=== PATIENT | male | born 1945 | race Caucasian/White ===

== ENCOUNTER 2019-03-20 12:55 | Emergency (ER) | payer MEDICARE, OTHER, SELFPAY ==
[2019-03-20] VITALS (47 sets, daily range): BP systolic 108–246; BP diastolic 57–118; PULSE 60–123; RESP 8–25; TEMP 36.8–36.9; O2SAT 92–100
--- NOTE | 2019-03-20 13:10 | DI.CT_ITS ---
EXAM: CT HEAD - STROKE PROTOCOL CLINICAL HISTORY: Altered mentation after a fall/rule out subdural TECHNIQUE: The exam was performed according to the usual protocol without contrast. COMPARISON: No exams were available for comparison FINDINGS: There is a 2.8 cm., heterogeneous mass in the posterior aspect of the left parietal lobe. There is m arked surrounding edema present. There is effacement of the adjacent sulci and the left lateral vent ricle. No midline shift is present. No intracranial hemorrhage is seen. The basilar cisterns are p atent. There is opacification of the ethmoid air cells. There is a small fluid level in the right m axillary sinus. The calvarium is intact. Mastoid air cells are well pneumatized. IMPRESSION: 1. 2.8 cm heterogeneous mass in the posterior aspect of the left parietal lobe. Post contrast CT sca n or MRI is recommended for further evaluation. 2. Opacities in the ethmoid air cells and right maxillary sinus suspicious for sinusitis or possibly hemorrhage.
--- NOTE | 2019-03-20 13:11 | ED.GENADUL_ITS ---
Discharge Plan Discharge Details Chief Complaint: CVA/TIA Primary Care Provider: Unknown,Unknown ED Provider: Geovanni Ernst Home Meds and New Rx's Prescriptions: No Action aspirin [Aspirin Low-Strength] 81 MG tablet,chewable 81 mg PO DAILY RF: 0 protein 454 GM powder 454 gm PO DAILY RF: 0 hydrochlorothiazide 25 MG tablet 25 mg PO DAILY Qty: 90 RF: 3 metoprolol tartrate 25 MG tablet 12.5 mg PO DAILY Qty: 45 RF: 3 amlodipine-benazepril 1 EACH capsule 1 tab-cap PO DAILY Qty: 90 RF: 1 Medical Decision Making 74-year-old gentleman with past medical history of tobacco abuse and hypertension. He has been noncompliant with any medications except for having taken one aspirin yesterday. Presented via EMS with acute on chronic altered mentation and right upper extremity weakness. Expressive a aphasia and unable to respond to commands on arrival. Also right upper extremity motor weakness. Otherwise nonfocal exam. EKG nondiagnostic. Labs nondiagnostic. Head CT diagnostic for a mass lesion with associated vasogenic edema. During course of evaluation, had a full witnessed tonic-clonic seizure. Treated with 2 mg of IV lorazepam, 1 g of IV Keppra, and 10 mg of IV dexamethasone. Discussed case with accepting neurosurgery physician at [facility]. Patient transferred to [facility] for higher level of assessment and management. Patient remained stable at time of transport with normal vital signs, normal respiratory function, and no further seizure-like activity. Medical Records Medical records reviewed: Yes I reviewed the patient's medical records. Imaging Data Radiologic Study: Attestation: I personally reviewed and interpreted this imaging study as follows: Imaging: CT Scan My impression: 3 to 4 cm mass lesion in the posterior aspect of the left frontoparietal lobe. Surrounding vasogenic edema. Images reviewed independently interpreted by myself. Radiologist's impression: Same. ECG Data Attestation: I personally reviewed and interpreted this ECG (s) as follows: (Atrial tachycardia, 100 bpm, no acute ST changes) HPI 74-year-old gentleman with a past medical history which includes hypertension and was not on oral anticoagulants transferred here via EMS for evaluation of acute on chronic difficulty with word finding, confusion, and right-sided weakness. History from the patient is limited because of difficulty with speech. According to EMS and his , Mr. Gonzalez fell approximately 3 weeks ago. He denied having had a significant injury to his . However, over the past 2 weeks, he has had increased difficulty with word finding and low-grade right-sided weakness. This morning, he has been significantly worsened in terms of inability to find words/converse and move his right upper extremity. On arrival, he is mildly hypertensive and appears no distress. However, he is unable to respond to questioning or follow commands. General Date/Time Provider Initiated Documentation: 03/20/19 13:05 . Related Data Home Medications Medication Instructions Recorded Confirmed aspirin [Aspirin Low-Strength] 81 mg PO DAILY tab 08/30/12 protein 454 gm PO DAILY 01/02/15 hydrochlorothiazide 25 mg PO DAILY #90 tab 02/12/16 metoprolol tartrate 12.5 mg PO DAILY #45 tab-cap 02/12/16 amlodipine-benazepril 1 tab-cap PO DAILY #90 tab-cap 07/15/16 Allergies Allergy/AdvReac Type Severity Reaction Status Date / Time codeine AdvReac unknown Unverified 03/20/19 13:12 estazolam AdvReac sleepwalkin Unverified 03/20/19 13:12 g sertraline AdvReac anxious, Unverified 03/20/19 13:12 dizzy General Stated Complaint: CVA/TIA NANNETTE: 2 Review of Systems Unobtainable due to mental status (Occasionally answers yes or no but otherwise unable to answer questions) [facility] Surgical History Tonsillectomy and adenoidectomy Family History Mother Essential hypertension Personal history of malignant neoplasm breast Father Diabetes Essential hypertension Sister Essential hypertension Sister No problems noted. Brother Substance abuse Grandfather Heart disease Stroke Grandmother Heart disease heart failure Social History Smoking/Tobacco Use Status: Current every day Alcohol Intake: former Drug use: Occasionally Substance use type: marijuana Additional Social history: Patient unable to articulate to answer questions. Exam Narrative Exam Narrative: Nursing note and vital signs have been reviewed and noted. GENERAL: alert, no acute distress, well -hydrated, well-nourished HEENT: atraumatic/normocephalic, PERRLA, EOMI, conjunctiva clear, external ears/canals normal, nasal mucosa normal NECK: supple, full range of motion, no mass, normal lymphadenopathy, no thyromegaly CARDIOVASCULAR: RRR, no murmurs, nl pulses, no edema PULMONARY: nl effort, no audible wheezing or stridor, nl breath sounds with no focal deficit. no chest wall tenderness ABDOMEN: soft, non-tender, non-distended, no mass, no organomegaly EXTREMITY: normal muscle tone, all joints with FROM, no deformity or tenderness SKIN: no exanthem appreciated NEURO: Unable to assess motor strength as patient does not respond to commands. Appears to be moving right upper extremity less than left. Expressive aphasia. PSYCH: Awake and alert interactive with staff and , Course Vital Signs Vital signs: Vital Signs Temperature 98.2 F 03/20/19 12:57 Pulse 100 H 03/20/19 12:57 Respiratory Rate 16 03/20/19 12:57 Blood Pressure 201/118 H 03/20/19 12:57 Pulse Oximetry 100 03/20/19 12:57 Temperature 98.2 F 03/20/19 12:57 Temperature Source Skin 03/20/19 12:57 Pulse 100 H 03/20/19 12:57 Respiratory Rate 16 03/20/19 12:57 Blood Pressure 201/118 H 03/20/19 12:57 Blood Pressure Position Sitting 03/20/19 12:57 Pulse Oximetry 100 03/20/19 12:57 Oxygen Delivery Method Room Air 03/20/19 12:57 Oxygen Flow Rate 0 03/20/19 12:57 Critical Care Time Critical Care Time Critical Care Time: Yes Total Critical Care Time: 60
[2019-03-20 13:28] LABS: Abs Immature Grans 0.02 k/cumm (0.0-0.09); Absolute Basophil Count 0.01 k/cumm (0.0-0.2); Absolute Lymphocyte Count 1.73 k/cumm (1.2-3.4); Absolute Monocyte Count 1.26 k/cumm (0.11-0.7); Basophils % 0.1; Eosinophils % 0.9; HCT 44.3 % (40.0-50.0); Immature Grans % 0.2; Lymphocytes % 15.5; Mean Corp. HGB Concentration 33.9 g/dL (32.0-36.0); Mean Corpuscular Hemoglobin 28.1 pg (27.0-33.0); Mean Corpuscular Volume 83.1 fL (80-95); Mean Platelet Volume 11.8 fL (8.0-11.0); Monocytes % 11.3; Platelet Count 224 x1000/uL (130-400); RBC 5.33 m/cumm (4.50-6.00); RBC Distribution Width 13.5 % (11.8-14.1); White Blood Cell Count 11.18 k/cumm (4.4-10.8)
[2019-03-20 13:29] LABS: Absolute Neutrophil Count 8.05 k/cumm (1.2-6.7)
[2019-03-20] MEDS: LORazepam 2 MG/ML VIAL ×2 (13:37→15:44)
[2019-03-20 13:39] LABS: ALT 30 U/L (16-63); AST 20 U/L (15-37); Alkaline Phosphatase 74 U/L (46-116); Anion Gap 14.5 mmol/L (3-11); BUN 11 mg/dL (7-18); Bilirubin, Total 0.5 mg/dL (0.2-1.0); CO2 20.5 mmol/L (21.0-32.0); CREATININE 0.99 mg/dL (0.70-1.30); Calcium 9.7 mg/dL (8.5-10.1); Chloride 103 mmol/L (98-107); Glucose 118 mg/dL (70-100); Potassium 3.6 mmol/L (3.5-5.1); Sodium 138 mmol/L (136-145); Total Protein 9.3 g/dL (6.4-8.2)
--- NOTE | 2019-03-20 13:42 | DI.VRAD_ITS ---
Addendum created by Yamileth Jones MD on 03/20/2019 2:23:55 PM EST THIS REPORT CONTAINS FINDINGS THAT MAY BE CRITICAL TO PATIENT CARE. The findings were verbally communicated via telephone conference with NANDINI BAIELY at 2:23 PM EST on 03/20/2019. The findings were acknowledged and understood. Initial report created on 03/20/2019 1:41:33 PM EST PROCEDURE INFORMATION: Exam: CT Head Without Contrast Exam date and time: 03/20/2019 1:11 PM Clinical history: 74 years old, male; Altered mental status/memory loss; Patient HX: AMS after fall TECHNIQUE: Imaging protocol: Computed tomography of the head without contrast. Other technique: STROKE PROTOCOL was implemented. COMPARISON: No relevant prior studies available. FINDINGS: Brain: Subtle 2.8 cm heterogeneous mass in the posterior aspect of the left frontoparietal lobe with surrounding edema. Ventricles: Effacement of the left occipital horn Bones/joints: Unremarkable. No acute fracture. Sinuses: Opacities in the ethmoid sinuses and right maxillary sinus and sphenoid sinuses may represent hemorrhage or sinusitis. Mastoid air cells: Visualized mastoid air cells are well aerated. Soft tissues: Unremarkable. IMPRESSION: 1. Subtle 2.8 cm heterogeneous mass in the posterior aspect of the left frontoparietal lobe with surrounding edema. 2. Opacities in the ethmoid sinuses and right maxillary sinus and sphenoid sinuses may represent hemorrhage or sinusitis. ASSESSMENT: ASPECTS ([place] Stroke Program Early CT Score) is 10 Dictated and Authenticated by: Yamileth Jones MD. Ordering:MIGUEL ANGEL Galarza MD
[2019-03-20] MEDS: Dexamethasone 10 MG/ML VIAL (13:44)
[2019-03-20] MEDS: levETIRAcetam 500 MG/5 ML VIAL (13:45)
[2019-03-20] MEDS: Normal Saline 100 ML 400 ML (13:47)
[2019-03-20] MEDS: Lactated Ringers 1,000 ML 100 ML IV (14:43)
== END 2019-03-20 16:02 ==
LOC: ER 13:39
PROVIDERS: Emergency Provider Emergency Medicine
DX: I63.9 Cerebral infarction, unspecified (principal); I10 Essential (primary) hypertension
CPT/HCPCS: 36415; 36416; 80053; 82962; 93005; 96361; 96374; 96375; 99291; 70450; 85025; 93010; J1100; J1953; J2060

== ENCOUNTER 2019-04-01 09:40 | Emergency (ER) | payer MEDICARE, OTHER, SELFPAY ==
[2019-04-01] VITALS (23 sets, daily range): BP systolic 137–165; BP diastolic 73–84; PULSE 49–59; RESP 10–24; TEMP 36.4; O2SAT 97–100
--- NOTE | 2019-04-01 10:06 | W.ED.GENAD ---
Discharge Plan Disposition Patient Disposition: HOME Condition: Stable Discharge Details Chief Complaint: Dizzy/Sync Clinical Impression: Syncope Primary Care Provider: Arline Chauhan ED Provider: Vlad Ortiz Discharge Instructions Instructions: Syncope (ED) Additional Instructions: Your cat scan of your head and chest did not show any bleeding or blood clots or pneumonia. You do have small compression fractures The neurosurgery team at [facility] did not feel adjusting your seizure meds was warranted at this time follow up as scheduled with your primary care provider next week and if you feel more ill or have difficulty breathing return to the emergency department drink fluids to stay hydrated Medical Decision Making 74 yo male who has metastatic lung cancer diagnosed after a seizure this month and had craniotomy for mass at [facility], hasn't started chemotherapy or other therapy as of yet, comes in with several episodes of loc over the past 2 days while standing. Denies chest pain, sob, abd pain, headaches, fevers, cough and he currently has no complaints and states I really want a donut. He has soft nontender abdomen, cN II-XII intact, no focal motor or sensation deficits. EKG sinus rhythm, hd stable. Will obtain troponin, ct head to eval for possible hemorrhage and obtain CTA to eval for PE given his current cancer and continue to monitor. labs show mild leukocytosis not changed from when he was at [facility] [place] and can be from his cancer. CTs show no acute findings other than acute/subacute t10-12 compression fxs and he states he only has mild back aches, no midline pain or stepoffs on exam. I discussed the case with neurosurgery at [facility] [place] Dr. Patel and did not recommend any changes in seizure meds. Patient has been stable here. I recommended observation admission for syncope but pt declined and has capacity to make his own decisions. He likely was experiencing orthostasis so advised to drink fluids. He has f/u next week with pcp and return precautions given Differential Diagnosis Differential Diagnosis: vasovagal, orthostasis, PE, sdh Medical Records Medical records reviewed: Yes I reviewed the patient's medical records. Imaging Data Radiologic Study: Attestation: I personally reviewed and interpreted this imaging study as follows: Imaging: CT Scan Radiologist's impression: IMPRESSION: 1. No evidence of a pulmonary embolus, thoracic aortic dissection or aneurysm. 2. 4 centimeter right upper lobe spiculated mass consistent with patient's known carcinoma. 3. Fractures involving the T10, T11 and T12 vertebral bodies as described above. The findings appear acute/subacute. 4. The findings were discussed with the emergency department on the date of the examination Radiologic Study #2: Attestation: I personally reviewed and interpreted this imaging study as follows: Imaging: CT Scan Radiologist's impression: IMPRESSION: 1. No acute intracranial process. 2. Postsurgical changes of a left parietal craniotomy and resection of the left parietal mass. Postsurgical changes are seen in the left parietal lobe. 3. The findings were discussed with the emergency department on the date of the examination. Lab Data Lab results reviewed: Yes I reviewed the patient's lab results. ECG Data Attestation: I personally reviewed and interpreted this ECG (s) as follows: Prior ECG tracings: not available for review Interpretation: sinus bradycardia, rate of 51, pr 144, no acute st t wave ischemic findings HPI General Mode of arrival: wheelchair. Date/Time Provider Initiated Documentation: 04/01/19 09:42. Limitations to Documentation: no limitations. Information obtained by: patient. History of Present Illness 74 year old M presents to the emergency department with the chief complaint of syncope, described as moderate, and it has been intermittent. No relieving factors improve symptom(s), No exacerbating factors reported . Patient did receive the following treatments prior to arrival, none Related Data Allergies Allergy/AdvReac Type Severity Reaction Status Date / Time codeine AdvReac unknown Unverified 04/01/19 10:12 estazolam AdvReac sleepwalkin Unverified 04/01/19 10:12 g sertraline AdvReac anxious, Unverified 04/01/19 10:12 dizzy General Stated Complaint: Dizzy/Sync NANNETTE: 2 Review of Systems All systems reviewed & are unremarkable except as noted in HPI and below Constitutional Constitutional: Denies chills, Denies fever(s) and Denies weakness Cardiovascular Cardiovascular: Denies chest pain and Denies dyspnea Respiratory Respiratory: Denies dyspnea Gastrointestinal Gastrointestinal: Denies abdominal pain, Denies nausea and Denies vomiting Musculoskeletal Musculoskeletal: Denies joint swelling Neurologic Neurologic: Denies weakness PFSH Social History Smoking/Tobacco Use Status: Former Tobacco Use Alcohol Intake: former Drug use: Occasionally Substance use type: marijuana Do you feel safe at home: Yes Do you feel safe in your relationship?: Yes Exam Const General: no acute distress Orientation: alert HENMT Head: normal to inspection Ears: external ears normal General nose exam: external nose normal Mouth: moist mucous membranes Eyes General: appearance normal, both eyes and all related structures Neck Neck: normal visual inspection Resp Effort & Inspection: normal respiratory effort and able to speak in complete sentences Cardio Rate: regular rate Skin General skin exam: no rashes or lesions noted Neuro General: alert and oriented x3 Extrem General: normal to inspection Psych Mental Status: mental status grossly normal Course Vital Signs Vital signs: Vital Signs Temperature 36.4 C L 04/01/19 09:49 Pulse 54 L 04/01/19 09:49 Respiratory Rate 16 04/01/19 09:49 Blood Pressure 157/74 H 04/01/19 09:49 Pulse Oximetry 99 04/01/19 09:49 Temperature 36.4 C L 04/01/19 09:49 Temperature Source Temporal Artery Scan 04/01/19 09:49 Pulse 54 L 04/01/19 09:49 Respiratory Rate 16 04/01/19 09:49 Blood Pressure 157/74 H 04/01/19 09:49 Blood Pressure Position Supine 04/01/19 09:49 Pulse Oximetry 99 04/01/19 09:49 Oxygen Delivery Method Room Air 04/01/19 09:49 Oxygen Flow Rate 0 04/01/19 09:49 Pain Level 0 04/01/19 09:49
[2019-04-01 10:07] LABS: Abs Immature Grans 0.23 k/cumm (0.0-0.09); Absolute Eosinophil Count 0.05 k/cumm (0.0-0.7); Absolute Lymphocyte Count 2.17 k/cumm (1.2-3.4); Basophils % 0.1; Eosinophils % 0.3; HCT 40.9 % (40.0-50.0); HGB 13.9 g/dL (13.5-17.5); Immature Grans % 1.3; Lymphocytes % 12.6; Mean Corpuscular Volume 82.5 fL (80-95); Mean Platelet Volume 11.7 fL (8.0-11.0); Monocytes % 11.1; Neutrophils % 74.6; Platelet Count 235 x1000/uL (130-400); RBC 4.96 m/cumm (4.50-6.00); RBC Distribution Width 13.6 % (11.8-14.1); White Blood Cell Count 17.19 k/cumm (4.4-10.8)
[2019-04-01] MEDS: Normal Saline 1,000 ML 1000 ML IV (10:12)
[2019-04-01 10:14] LABS: Absolute Basophil Count 0.02 k/cumm (0.0-0.2); Absolute Monocyte Count 1.91 k/cumm (0.11-0.7); Absolute Neutrophil Count 12.82 k/cumm (1.2-6.7)
[2019-04-01 10:21] LABS: PTT Activated 24.7 sec (21.0-31.4); Prothrombin Time 9.8 sec (9.3-11.0)
[2019-04-01 10:32] LABS: ALT 117 U/L (16-63); AST 23 U/L (15-37); Albumin 3.3 g/dL (3.4-5.0); Alkaline Phosphatase 100 U/L (46-116); Anion Gap 10.3 mmol/L (3-11); BUN 25 mg/dL (7-18); Bilirubin, Total 0.2 mg/dL (0.2-1.0); CO2 22.7 mmol/L (21.0-32.0); CREATININE 0.86 mg/dL (0.70-1.30); Calcium 8.1 mg/dL (8.5-10.1); Chloride 102 mmol/L (98-107); Glucose 91 mg/dL (74-106); Magnesium 1.9 mg/dL (1.8-2.4); NT-proBNP 36 pg/mL (<300); Potassium 4.1 mmol/L (3.5-5.1); Sodium 135 mmol/L (136-145); Total Protein 7.2 g/dL (6.4-8.2)
[2019-04-01 10:33] LABS: Troponin I < 0.05 ng/Ml (<0.06)
--- NOTE | 2019-04-01 10:50 | DI.CT_ITS ---
EXAM: CT HEAD WO CLINICAL HISTORY: s/p craniotomy, syncope TECHNIQUE: The exam was performed according to the usual protocol without contrast. COMPARISON: CT HEAD - STROKE PROTOCOL from 03/20/2019 FINDINGS: There has been interval resection of the left parietal mass. There are areas of decreased attenuatio n seen in the white matter in the left parietal lobe, this likely reflects post surgical change. No acute intracranial hemorrhage, midline shift or mass effect is present. The ventricles are intact. The basilar cisterns are patent. Ventricles and sulci are consistent with the patient's age. There is mucosal thickening seen in several of the visualized paranasal sinuses. There is a mucous retenti on cyst or polyp in the right maxillary sinus. The mastoid air cells are well pneumatized. There ar e postsurgical changes of a left posterior parietal craniotomy. IMPRESSION: 1. No acute intracranial process. 2. Postsurgical changes of a left parietal craniotomy and resection of the left parietal mass. Posts urgical changes are seen in the left parietal lobe. 3. The findings were discussed with the emergency department on the date of the examination.
--- NOTE | 2019-04-01 11:00 | DI.CT_ITS ---
EXAM: CT CHEST PE CTA CLINICAL HISTORY: metastatic lung cancer, syncope, ?PE TECHNIQUE: Imaging Protocol: Axial CT angiography was performed with multi-slice acquisition and mu lti-planar and/or 3D reconstructions. CONTRAST MATERIAL: Intravenous: Omnipaque 350 Contrast volume:71 mL contrast route:IV - Oral:No COMPARISON: No exams were available for comparison FINDINGS: Pulmonary Arteries: No evidence of filling defect to suggest pulmonary emboli. Tracheobronchial tree: Patent where visualized. Mediastinum and Roberta: No dominant adenopathy or fluid collection. Pulmonary parenchyma: There is a spiculated right upper lobe mass measuring 3.7 centimeters AP by 3.2 centimeters transverse by 4.0 centimeters craniocaudad. The finding is most consistent with the nathanael ent's known lung carcinoma. There are emphysematous changes within the lungs. No focal consolidatin g infiltrates are seen. Again atelectatic changes are seen in the lung bases. No architectural dist ortion. Pleura: No effusion or pneumothorax. Heart/Aorta: There is no evidence of thoracic aortic dissection or aneurysm. The heart is not dilate d. No coronary artery calcifications are seen. No evidence of right heart strain. Upper abdomen: Unremarkable. Bones: There is a compression fracture of the T12 vertebral body. There is loss of approximately 20 percent of the height of the vertebral body. The finding appears acute/subacute. There also appear to be mild compression deformities of the superior endplates of T10 and T11. Degenerative changes ar e seen in the spine. IMPRESSION: 1. No evidence of a pulmonary embolus, thoracic aortic dissection or aneurysm. 2. 4 centimeter right upper lobe spiculated mass consistent with patient's known carcinoma. 3. Fractures involving the T10, T11 and T12 vertebral bodies as described above. The findings appear acute/subacute. 4. The findings were discussed with the emergency department on the date of the examination. DATA REPOSITORY: All CT scans at this facility are submitted to the National Radiology Data Registry (NRDR) Dose Index Registry (DIR) with the [employer] (ACR). RADIATION OPTIMIZATION: All CT scans at this facility use at least one of these dose optimization te chniques: automated exposure control; mA and/or kV adjustment per patient size (includes targeted exa ms where dose is matched to clinical indication); or iterative reconstruction.
[2019-04-01] MEDS: Omnipaque 350 MG/ML 100 ML BTL 71 ML IJ (11:04)
--- NOTE | 2019-04-01 11:50 | CMPROGNOTE_ITS ---
- If Service Date Differs Date of service: 04/01/19 Time of Service: 11:50 Care Management Progress Note S/O: meets with Martinez at the request of Dr. Almonte. Martinez reports he and his , Gissel, live in [place] in their own home. The house is a two-story house but he has been sleeping downstairs on a sofabed for several weeks due to his difficulty going up and down the stairs. Martinez states he has episodes of dizziness that come on suddenly and these sometimes cause him to fall. Lisa mcarthur, Martinez does not have any in-home services, but his , who is present in the room, reports she retired from [employer], so she knows who to call should they decide they need in-home services. She states neighbors, friends, and family members have been very supportive and are providing assistance at home when needed. With respect to medical equipment, Martinez has a walker, in addition to rails throughout the house. He shares that he was diagnosed with metastatic lung cancer a few weeks ago and is scheduled to begin chemotherapy at [facility]. A: Martinez is a 74-year-old male who presents to the ED today due to dizziness and syncope. P: Martinez is returning home with his . He will follow-up with his primary care physician and oncologist at [facility]. He is scheduled to begin chemotherapy in two weeks at [facility], in addition to having an upcoming appointment with Palliative Care on 04/06/2019 at 9:30 am, and beginning outpatient physical therapy with [facility] on 04/12/2019 at 3:00 pm.
== END 2019-04-01 12:33 | disposition home or self-care (01) ==
PROVIDERS: Emergency Provider Emergency Medicine; PCP Family Medicine
DX: R55 Syncope and collapse (principal); S22.080A Wedge compression fracture of T11-T12 vertebra, initial encounter for closed fracture; S22.070D Wedge compression fracture of T9-T10 vertebra, subsequent encounter for fracture with routine healing; C34.90 Malignant neoplasm of unspecified part of unspecified bronchus or lung; Z98.890 Other specified postprocedural states; I10 Essential (primary) hypertension; Z53.29 Procedure and treatment not carried out because of patient's decision for other reasons
CPT/HCPCS: 36415; 71275; 80053; 93005; 96360; 96361; 99285; 70450; 83735; 83880; 84484; 85025; 85610; 85730; 93010; J3490

== ENCOUNTER 2019-07-12 15:21 | Outpatient (CLI) | payer MEDICARE, OTHER, SELFPAY ==
[2019-07-12 15:44] LABS: Abs Immature Grans 0.03 k/cumm (0.0-0.09); Absolute Basophil Count 0.01 k/cumm (0.0-0.2); Absolute Eosinophil Count 0.08 k/cumm (0.0-0.7); Absolute Lymphocyte Count 2.24 k/cumm (1.2-3.4); Absolute Monocyte Count 0.89 k/cumm (0.11-0.7); Absolute Neutrophil Count 4.35 k/cumm (1.2-6.7); Basophils % 0.1; Eosinophils % 1.1; HCT 35.6 % (40.0-50.0); HGB 11.6 g/dL (13.5-17.5); Immature Grans % 0.4 %; Lymphocytes % 29.5; Mean Corp. HGB Concentration 32.6 g/dL (32.0-36.0); Mean Corpuscular Hemoglobin 25.4 pg (27.0-33.0); Mean Corpuscular Volume 77.9 fL (80-95); Mean Platelet Volume 9.4 fL (8.0-11.0); Monocytes % 11.7; Neutrophils % 57.2; Platelet Count 463 x1000/uL (130-400); RBC 4.57 m/cumm (4.50-6.00); RBC Distribution Width 13.3 % (11.8-14.1)
[2019-07-12 16:13] LABS: ALT 34 U/L (16-63); AST 17 U/L (15-37); Albumin 3.1 g/dL (3.4-5.0); Alkaline Phosphatase 92 U/L (46-116); Anion Gap 7.8 mmol/L (3-11); BUN 17 mg/dL (7-18); Bilirubin, Total 0.2 mg/dL (0.2-1.0); CO2 27.2 mmol/L (21.0-32.0); CREATININE 0.88 mg/dL (0.70-1.30); Calcium 9.1 mg/dL (8.5-10.1); Chloride 103 mmol/L (98-107); Glucose 111 mg/dL (74-106); Potassium 4.2 mmol/L (3.5-5.1); Sodium 138 mmol/L (136-145); TSH 0.67 uIU/mL (0.36-3.74); Total Protein 7.2 g/dL (6.4-8.2)
== END 2019-07-12 15:41 ==
PROVIDERS: PCP Family Medicine; Visit Provider Internal Medicine Medical Oncology
DX: C34.91 Malignant neoplasm of unspecified part of right bronchus or lung (principal); Z79.899 Other long term (current) drug therapy
CPT/HCPCS: 36415; 80053; 84439; 84443; 85025

== ENCOUNTER 2020-02-21 21:18 | Outpatient (REF) | payer MEDICARE, OTHER, SELFPAY ==
[2020-02-21 22:01] LABS: TSH (W/Ref FT4) 0.42 uIU/mL (0.36-3.74)
== END 2020-02-21 21:38 ==
LOC: LBN 21:18
PROVIDERS: PCP Family Medicine; Visit Provider Family Medicine
DX: I10 Essential (primary) hypertension (principal)
CPT/HCPCS: 84443

== ENCOUNTER 2020-04-19 05:13 | Outpatient (CLI) | payer MEDICARE, OTHER, SELFPAY ==
[2020-04-19 09:55] LABS: Abs Immature Grans 0.15 10^3/uL (0.0-0.06); Absolute Eosinophil Count 0.05 10^3/uL (0.0-0.7); Basophils % 0.2; Eosinophils % 0.3; HCT 45.2 % (40.0-50.0); HGB 14.6 g/dL (13.5-17.5); Immature Grans % 0.9; Lymphocytes % 10.9; MCH 26.4 pg (27.0-33.0); MCHC 32.3 % (32.0-36.0); MCV 81.9 fL (80-95); MPV 11.4 fL (8.0-11.0); Monocytes % 5.2; Neutrophils % 82.5; Nucleated RBC 0 %; Platelet Count 226 10^3/uL (130-400); RBC 5.52 10^6/uL (4.36-5.78); RDW 15.6 % (11.8-14.1); RDW-SD 46.5 fL; WBC 16.03 10^3/uL (4.4-10.8)
[2020-04-19 09:56] LABS: Absolute Basophil Count 0.03 10^3/uL (0.0-0.2); Absolute Lymphocyte Count 1.75 10^3/uL (1.2-3.4); Absolute Monocyte Count 0.83 10^3/uL (0.1-0.8); Absolute Neutrophil Count 13.22 10^3/uL (1.2-6.7)
[2020-04-19 10:16] LABS: ALT 42 U/L (16-63); AST 15 U/L (15-37); Albumin 3.7 g/dL (3.4-5.0); Alkaline Phosphatase 63 U/L (46-116); Anion Gap 10.8 mmol/L (3-11); BUN 15 mg/dL (7-18); Bilirubin, Total 0.5 mg/dL (0.2-1.0); CO2 26.2 mmol/L (21.0-32.0); Calcium 9.7 mg/dL (8.5-10.1); Chloride 99 mmol/L (98-107); FREE T4 1.12 ng/dL (0.76-1.46); Glucose 175 mg/dL (74-106); Magnesium 1.6 mg/dL (1.8-2.4); Potassium 3.3 mmol/L (3.5-5.1); Sodium 136 mmol/L (136-145); TSH 0.46 uIU/mL (0.36-3.74); Total Protein 7.8 g/dL (6.4-8.2)
== END 2020-04-19 05:33 ==
PROVIDERS: PCP Family Medicine; Visit Provider Internal Medicine Medical Oncology
DX: C34.11 Malignant neoplasm of upper lobe, right bronchus or lung (principal); R93.89 Abnormal findings on diagnostic imaging of other specified body structures
CPT/HCPCS: 36415; 80053; 83735; 84439; 84443; 85025

== ENCOUNTER 2020-12-13 04:16 | Outpatient (CLI) | payer MEDICARE, OTHER, SELFPAY ==
[2020-12-13 14:25] LABS: ALT 46 U/L (16-63); AST 25 U/L (15-37); Albumin 3.6 g/dL (3.4-5.0); Alkaline Phosphatase 86 U/L (46-116); Anion Gap 11.4 mmol/L (3-11); BUN 15 mg/dL (7-18); Bilirubin, Total 0.4 mg/dL (0.2-1.0); CO2 27.6 mmol/L (21.0-32.0); CREATININE 0.9 mg/dL (0.70-1.30); Calcium 9.6 mg/dL (8.5-10.1); Chloride 99 mmol/L (98-107); Glucose 132 mg/dL (74-106); Potassium 3.4 mmol/L (3.5-5.1); Sodium 138 mmol/L (136-145); Total Protein 7.6 g/dL (6.4-8.2)
== END 2020-12-13 04:17 | disposition home or self-care (01) ==
LOC: LBO 04:16
PROVIDERS: PCP Family Medicine; Visit Provider Internal Medicine
DX: M11.20 Other chondrocalcinosis, unspecified site (principal); M10.9 Gout, unspecified
CPT/HCPCS: 36415; 80053; 84550

== ENCOUNTER 2021-05-22 03:24 | Outpatient (CLI) | payer MEDICARE, SELFPAY | END 2021-05-22 03:25 | disposition home or self-care (01) | LOC: LBO 03:24 | PROVIDERS: PCP Family Medicine; Visit Provider Radiology Radiation Oncology | DX: C79.31 Secondary malignant neoplasm of brain (principal) | CPT/HCPCS: 36415; 82565 ==

== ENCOUNTER 2021-06-18 02:01 | Outpatient (CLI) | payer MEDICARE, SELFPAY ==
[2021-06-18 10:23] LABS: ALT 60 U/L (16-63); AST 35 U/L (15-37); Albumin 3.6 g/dL (3.4-5.0); Alkaline Phosphatase 75 U/L (46-116); Anion Gap 8.9 mmol/L (3-11); BUN 13 mg/dL (7-18); Bilirubin, Total 0.6 mg/dL (0.2-1.0); CO2 28.1 mmol/L (21.0-32.0); Calcium 9.5 mg/dL (8.5-10.1); Chloride 104 mmol/L (98-107); Glucose 106 mg/dL (74-106); Potassium 3.3 mmol/L (3.5-5.1); Sodium 141 mmol/L (136-145); Total Protein 7.3 g/dL (6.4-8.2); Uric Acid 4.9 mg/dL (3.5-7.2)
== END 2021-06-18 02:02 | disposition home or self-care (01) ==
LOC: LBO 02:01
PROVIDERS: PCP Family Medicine; Visit Provider Internal Medicine
DX: M11.29 Other chondrocalcinosis, multiple sites (principal); M10.9 Gout, unspecified
CPT/HCPCS: 36415; 80053; 84550

== ENCOUNTER 2022-07-24 21:12 | Outpatient (REF) | payer MEDICARE, SELFPAY ==
[2022-07-31 00:20] LABS: EDDP-by GC-MS 1799 ng/mL (Cutoff: 100); Methadone Interpretation Positive.; Methadone-by GC-MS 1290 ng/mL (Cutoff: 100)
== END 2022-07-24 21:13 | disposition home or self-care (01) ==
LOC: LBN 21:12
PROVIDERS: PCP Family Medicine; Visit Provider Family Medicine
DX: G89.4 Chronic pain syndrome (principal); Z79.891 Long term (current) use of opiate analgesic
CPT/HCPCS: 80358

== ENCOUNTER 2022-07-31 03:51 | Outpatient (CLI) | payer MEDICARE, SELFPAY ==
--- NOTE | 2022-07-31 | DI.DEXA_ITS ---
Exam(s) XR DEXA BONE DENSITY W/WO ANNABEL EXAM: XR DEXA BONE DENSITY W/WO ANNABEL CLINICAL HISTORY: PRISON CURRENT USE SYSTEMIC STEROIDS, Z79.52, LUNG CA WITH METS, TECHNIQUE: COMPARISON: CT CT CHEST PE CTA from 04/01/2019 FINDINGS: Lateral Spine Image: There is a stable T12 compression fracture deformity. Left hip: Total T-Score: -2.4 Total Z-Score: -1.6 T- and Z-scores: Findings are consistent with osteopenia. There is osteoporosis in the femoral neck with a T-score of -3.1. Lumbar Spine: Total T-Score: 0.3 Total Z-Score: 1.4 T- and Z-scores: Within normal limits. There is osteopenia in L1 with a T-score of -1.4. IMPRESSION: Osteoporosis in the left femoral neck.
== END 2022-07-31 04:11 ==
LOC: DI 03:51
PROVIDERS: PCP Family Medicine; Visit Provider Student in an Organized Health Care Education/Training Program
DX: Z79.52 Long term (current) use of systemic steroids (principal); Z12.2 Encounter for screening for malignant neoplasm of respiratory organs; M81.0 Age-related osteoporosis without current pathological fracture; M85.88 Other specified disorders of bone density and structure, other site; C34.91 Malignant neoplasm of unspecified part of right bronchus or lung; C79.31 Secondary malignant neoplasm of brain
CPT/HCPCS: 77080

== ENCOUNTER 2022-08-13 12:50 | Outpatient (CLI) | payer MEDICARE, SELFPAY ==
[2022-08-13 14:36] LABS: Abs Immature Grans 0.02 10^3/uL (0.0-0.06); Absolute Basophil Count 0.03 10^3/uL (0.0-0.2); Absolute Lymphocyte Count 2.28 10^3/uL (1.2-3.4); Absolute Monocyte Count 0.73 10^3/uL (0.1-0.8); Absolute Neutrophil Count 5.01 10^3/uL (1.2-6.7); Basophils % 0.4; Eosinophils % 2.4; HGB 13.3 g/dL (13.5-17.5); Immature Grans % 0.2; Lymphocytes % 27.6; MCH 25.8 pg (27.0-33.0); MCHC 32.4 % (32.0-36.0); MCV 80 fL (80-95); Monocytes % 8.8; Neutrophils % 60.6; Platelet Count 186 10^3/uL (130-400); RBC 5.16 10^6/uL (4.36-5.78); RDW 13.9 % (11.8-14.1); RDW-SD 39.9 fL; WBC 8.27 10^3/uL (4.4-10.8)
[2022-08-13 15:06] LABS: ALT 35 U/L (16-63); AST 26 U/L (15-37); Albumin 3.7 g/dL (3.4-5.0); Alkaline Phosphatase 104 U/L (46-116); Anion Gap 9.5 mmol/L (3-11); BUN 13 mg/dL (7-18); Bilirubin, Total 0.4 mg/dL (0.2-1.0); CO2 28.5 mmol/L (21.0-32.0); CREATININE 1.2 mg/dL (0.70-1.30); Calcium 9.6 mg/dL (8.5-10.1); Chloride 105 mmol/L (98-107); Estimated GFR 63.07 (mL/min/1.73m2); Glucose 97 mg/dL (74-106); Potassium 3.8 mmol/L (3.5-5.1); Sodium 143 mmol/L (136-145); Total Protein 8.3 g/dL (6.4-8.2)
== END 2022-08-13 12:51 | disposition home or self-care (01) ==
LOC: LBO 12:52
PROVIDERS: Internal Medicine Medical Oncology; PCP Family Medicine; Visit Provider Radiology Radiation Oncology
DX: C34.11 Malignant neoplasm of upper lobe, right bronchus or lung (principal); C79.31 Secondary malignant neoplasm of brain
CPT/HCPCS: 36415; 80053; 85025

== ENCOUNTER 2023-03-12 11:01 | Outpatient (CLI) | payer MEDICARE, SELFPAY ==
[2023-03-12 12:20] LABS: HGB 13.3 g/dL (13.5-17.5); MCH 25.5 pg (27.0-33.0); MCHC 31.7 % (32.0-36.0); MCV 81 fL (80-95); MPV 11.2 fL (8.0-11.0); Platelet Count 201 10^3/uL (130-400); RBC 5.22 10^6/uL (4.36-5.78); RDW 13.8 % (11.8-14.1); RDW-SD 39.8 fL; WBC 6.65 10^3/uL (4.4-10.8)
[2023-03-12 13:07] LABS: ALT 24 U/L (16-63); AST 20 U/L (15-37); Alkaline Phosphatase 97 U/L (46-116); Anion Gap 9.2 mmol/L (3-11); BUN 13 mg/dL (7-18); Bilirubin, Total 0.4 mg/dL (0.2-1.0); CO2 27.8 mmol/L (21.0-32.0); CREATININE 1.3 mg/dL (0.70-1.30); Calcium 9.9 mg/dL (8.5-10.1); Chloride 100 mmol/L (98-107); Estimated GFR 56.93 (mL/min/1.73m2); Glucose 100 mg/dL (74-106); Potassium 3.6 mmol/L (3.5-5.1); Sodium 137 mmol/L (136-145); Total Protein 8.9 g/dL (6.4-8.2)
== END 2023-03-12 11:02 | disposition home or self-care (01) ==
PROVIDERS: PCP Family Medicine; Referring Provider Family Medicine; Visit Provider Family Medicine
DX: C34.90 Malignant neoplasm of unspecified part of unspecified bronchus or lung (principal); I10 Essential (primary) hypertension
CPT/HCPCS: 36415; 80053; 85027

== ENCOUNTER 2023-05-05 14:37 | Outpatient (CLI) | payer MEDICARE, SELFPAY ==
[2023-05-05 14:48] LABS: Abs Immature Grans 0.01 10^3/uL (0.0-0.06); Absolute Basophil Count 0.02 10^3/uL (0.0-0.2); Absolute Eosinophil Count 0.16 10^3/uL (0.0-0.7); Absolute Lymphocyte Count 2.19 10^3/uL (1.2-3.4); Absolute Monocyte Count 0.49 10^3/uL (0.1-0.8); Absolute Neutrophil Count 3.25 10^3/uL (1.2-6.7); Basophils % 0.3; Eosinophils % 2.6; HCT 42.7 % (40.0-50.0); HGB 13.7 g/dL (13.5-17.5); Immature Grans % 0.2; Lymphocytes % 35.8; MCH 25.9 pg (27.0-33.0); MCHC 32.1 % (32.0-36.0); MCV 81 fL (80-95); MPV 10.5 fL (8.0-11.0); Neutrophils % 53.1; Platelet Count 173 10^3/uL (130-400); RBC 5.29 10^6/uL (4.36-5.78); RDW 13.7 % (11.8-14.1); RDW-SD 40.2 fL; WBC 6.12 10^3/uL (4.4-10.8)
[2023-05-05 15:58] LABS: ALT 24 U/L (16-63); AST 20 U/L (15-37); Albumin 3.7 g/dL (3.4-5.0); Alkaline Phosphatase 86 U/L (46-116); BUN 13 mg/dL (7-18); Bilirubin, Total 0.4 mg/dL (0.2-1.0); CREATININE 1.1 mg/dL (0.70-1.30); Calcium 9.4 mg/dL (8.5-10.1); Chloride 104 mmol/L (98-107); Estimated GFR 69.57 (mL/min/1.73m2); Glucose 123 mg/dL (74-106); Sodium 138 mmol/L (136-145); Total Protein 7.8 g/dL (6.4-8.2)
== END 2023-05-05 14:38 | disposition home or self-care (01) ==
LOC: LBO 14:38
PROVIDERS: PCP Family Medicine; Visit Provider Internal Medicine Medical Oncology
DX: C34.11 Malignant neoplasm of upper lobe, right bronchus or lung (principal)
CPT/HCPCS: 36415; 80053; 85025

== ENCOUNTER 2023-05-31 19:43 | Observation (INO) | payer MEDICARE, SELFPAY ==
[2023-05-31] VITALS (41 sets, daily range): BP systolic 137–198; BP diastolic 55–97; PULSE 49–88; RESP 10–25; TEMP 36.6; O2SAT 95
--- NOTE | 2023-05-31 19:45 | RT.EKG_ITS ---
APPROVED REPORT Exam: Resting ECG Reason for Exam: possible stroke Patient Location: E HR:86 bpm ECG Measurements Heart Rate 86 AXIS NJ 170 P 73 QRSd 100 QRS 63 QT 390 T 24 QTc 466 Conclusion Sinus rhythm...normal P axis, V-rate 60- 99 Ventricular bigeminy...bigeminy string>4 w/ V complexes Probable left atrial enlargement...P >50mS, <-0.10mV V1
--- NOTE | 2023-05-31 19:45 | DI.CT_ITS ---
Exam(s) CT HEAD - STROKE PROTOCOL EXAM: CT HEAD - STROKE PROTOCOL CLINICAL HISTORY: altered mentation, neglect right, occipital ORR. TECHNIQUE: Imaging Protocol: Axial computed tomography images with coronal and sagittal reformatted images were created and reviewed COMPARISON: CT CT HEAD WO from 04/01/2019 FINDINGS: Ventricles and Extra axial spaces: Normal in size and morphology for the patient's age. Hemorrhage: None. Cerebral parenchyma: No evidence of acute infarct or mass. Area of decreased attenuation noted in t he left parietal lobe, unchanged from prior. Midline shift: None. Brainstem/Cerebellum: Normal. Calvarium: Left high parietal craniotomy defect again noted. Visualized Paranasal sinuses:Circumferential mucosal thickening of right maxillary sinus. Mastoids: Clear. Soft Tissues: Unremarkable. ORBITS: Unremarkable. PITUITARY: Normal. IMPRESSION: No acute intracranial process. A left parietal craniotomy and left parietal encephalomalacia, stable. RADIATION DOSE DELIVERED: 737.72mGy.cm Total DLP DATA REPOSITORY: All CT scans at this facility are submitted to the National Radiology Data Registry (NRDR) Dose Index Registry (DIR) with the [employer] (ACR). RADIATION OPTIMIZATION: All CT scans at this facility use at least one of these dose optimization te chniques: automated exposure control; mA and/or kV adjustment per patient size (includes targeted exa ms where dose is matched to clinical indication); or iterative reconstruction.
[2023-05-31 20:08] LABS: Abs Immature Grans 0.02 10^3/uL (0.0-0.06); Absolute Basophil Count 0.03 10^3/uL (0.0-0.2); Absolute Eosinophil Count 0.08 10^3/uL (0.0-0.7); Absolute Lymphocyte Count 1.65 10^3/uL (1.2-3.4); Absolute Monocyte Count 0.61 10^3/uL (0.1-0.8); Absolute Neutrophil Count 4.74 10^3/uL (1.2-6.7); Basophils % 0.4; Eosinophils % 1.1; HCT 40.3 % (40.0-50.0); HGB 13.2 g/dL (13.5-17.5); Immature Grans % 0.3; Lymphocytes % 23.1; MCH 26.1 pg (27.0-33.0); MCHC 32.8 % (32.0-36.0); MCV 80 fL (80-95); MPV 10.9 fL (8.0-11.0); Monocytes % 8.6; Neutrophils % 66.5; Platelet Count 179 10^3/uL (130-400); RBC 5.05 10^6/uL (4.36-5.78); RDW 13.8 % (11.8-14.1); RDW-SD 39.7 fL; WBC 7.13 10^3/uL (4.4-10.8)
--- NOTE | 2023-05-31 20:12 | DI.VRAD_ITS ---
PROCEDURE INFORMATION: Exam: CT Head Without Contrast Exam date and time: 05/31/2023 8:03 PM Age: 78 years old Clinical indication: Stroke-like symptoms; Dizziness/giddiness and headache; Additional info: Altered mentation, neglect right, occipital ORR. HX of occipital mass TECHNIQUE: Imaging protocol: Computed tomography of the head without contrast. Radiation optimization: All CT scans at this facility use at least one of these dose optimization techniques: automated exposure control; mA and/or kV adjustment per patient size (includes targeted exams where dose is matched to clinical indication); or iterative reconstruction. Other technique: STROKE PROTOCOL was implemented. COMPARISON: MR HEAD^ADULT 01/30/2020 2:42 PM FINDINGS: Brain: Left occipital vasogenic edema/gliosis No hemorrhage. Grossly stable white matter disease Cerebral ventricles: No ventriculomegaly. Paranasal sinuses: Fluid level and mucosal thickening in the right maxillary sinus. Mild mucosal thickening in the right ethmoid air cells. Mastoid air cells: Visualized mastoid air cells are well aerated. Bones/joints: Left occipital craniotomy No acute fracture. Soft tissues: Unremarkable. IMPRESSION: No acute intracranial hemorrhage Left occipital vasogenic edema/gliosis. Consider further evaluation with contrast enhanced brain MRI as clinically indicated ASSESSMENT: ASPECTS ([place] Stroke Program Early CT Score) is 10. Dictated and Authenticated by: Raulito Main MD. Ordering:GM Grigsby MD
[2023-05-31] MEDS: Ondansetron 4 MG/2 ML VIAL IVP ×2 (20:17→21:38)
[2023-05-31] MEDS: ACETAMINOPHEN 1,000 MG/100 ML BTL 400 MG IVPB (20:20)
[2023-05-31] MEDS: Normal Saline Flush 10 ML SYR IVP ×2 (20:21→21:11)
[2023-05-31 20:28] LABS: ALT 25 U/L (16-63); AST 22 U/L (15-37); Albumin 3.8 g/dL (3.4-5.0); Alkaline Phosphatase 88 U/L (46-116); BUN 10 mg/dL (7-18); Bilirubin, Total 0.3 mg/dL (0.2-1.0); CREATININE 1.1 mg/dL (0.70-1.30); Calcium 9.5 mg/dL (8.5-10.1); Chloride 102 mmol/L (98-107); Estimated GFR 69.57 (mL/min/1.73m2); Glucose 118 mg/dL (74-106); Magnesium 1.6 mg/dL (1.8-2.4); Potassium 3.8 mmol/L (3.5-5.1); Sodium 139 mmol/L (136-145); Total Protein 8.1 g/dL (6.4-8.2); Troponin I < 50 ng/L (< or =60)
--- NOTE | 2023-05-31 20:37 | ED.GENADUL_ITS ---
HPI General Mode of arrival: EMS . Date/Time Provider Initiated Documentation: 05/31/23 19:48 . Information obtained by: patient, family and EMS . HPI Narrative: 78-year-old male with history of metastatic lung cancer to the brain, status post craniectomy and immunotherapy in 2019, presents tonight with chief complaint of headache. Patient notes occipital headache that started just prior to arrival. Patient's notes he was watching football and she noticed that his speech seemed altered around 6 PM. She stated he seemed confused and making inappropriate statements. She notes he was somewhat agitated. She states he was falling to the right and also walked into a door on the right side of his face. Mentation has improved since onset but he has not returned to baseline per . Patient has poor recollection of events leading up to onset of symptoms and states he just disappeared. Related Data Home Medications Medication Instructions Recorded Confirmed acetaminophen 500 mg tablet 1,000 mg PO Q6H PRN 04/04/19 05/31/23 sennosides 8.6 mg-docusate sodium 1 tab-cap PO DAILY 09/11/20 05/31/23 50 mg tablet (Senna with Docusate Sodium) hydroxychloroquine 100 mg tablet 100 mg PO BID 09/26/21 05/31/23 varicella-zoster glycoE [id number] 0.5 ml IM ONCE #1 ea 07/01/22 05/31/23 adj(PF) 50 mcg/0.5 mL IM susp, kit (Shingrix (PF)) amitriptyline 100 mg tablet 125 mg (1.25 x 100 mg) PO QHS #120 07/24/22 05/31/23 tabs clonidine HCl 0.1 mg tablet 0.05 mg (1/2 x 0.1 mg) PO Q6H #180 07/24/22 05/31/23 tabs mupirocin 2 % topical ointment 1 applic topical BID #30 grams 09/22/22 05/31/23 methadone 5 mg tablet 5 mg PO DAILY #30 tabs 05/27/23 05/31/23 Previous Rx's Medication Instructions Recorded varicella-zoster glycoE [id number] 0.5 ml IM ONCE #1 ea 07/01/22 adj(PF) 50 mcg/0.5 mL IM susp, kit (Shingrix (PF)) amitriptyline 100 mg tablet 125 mg (1.25 x 100 mg) PO QHS #120 07/24/22 tabs clonidine HCl 0.1 mg tablet 0.05 mg (1/2 x 0.1 mg) PO Q6H #180 07/24/22 tabs mupirocin 2 % topical ointment 1 applic topical BID #30 grams 09/22/22 methadone 5 mg tablet 5 mg PO DAILY #30 tabs 05/27/23 Allergies Allergy/AdvReac Type Severity Reaction Status Date / Time codeine AdvReac unknown Verified 05/31/23 20:01 estazolam AdvReac sleepwalkin Verified 05/31/23 20:01 g sertraline AdvReac anxious, Verified 05/31/23 20:01 dizzy General Stated Complaint: GenMedical NANNETTE: 2 Review of Systems All systems reviewed & are unremarkable except as noted in HPI and below Constitutional Constitutional: Denies fever(s) Cardiovascular Cardiovascular: Denies chest pain Gastrointestinal Gastrointestinal: Reports nausea Neurologic Neurologic: Reports as per HPI Exam Const General: cooperative and no acute distress [facility] Head: normocephalic and atraumatic Mouth: moist mucous membranes Eyes Conjunctivae: normal conjunctivae Sclera: normal sclerae EOM: EOM intact bilaterally Neck Neck: trachea midline and supple Resp Auscultation: clear to auscultation bilaterally, no rales, no rhonchi and no wheezes Cardio Rate: regular rate and not tachycardic GI Palpation: soft, not firm, no guarding, no masses, not rigid and nontender Skin General skin exam: no rashes or lesions noted Neuro General: patient alert, patient awake and tone normal Cranial Nerves: PERRL, accommodation normal, EOM intact bilaterally, no nystagmus, facial strength normal, tongue midline and able to elevate shoulders bilaterally Cognition: abnormal cognition (minimal confusion, aware he was watching footbal but does not know teams) Speech: speech normal Motor: strength 5/5 throughout Sensory Exam: no sensory deficits noted Extrem General: no edema Psych Appearance: grossly normal Course Vital Signs Vital signs: Vital Signs Temperature 36.6 C 05/31/23 19:48 Pulse 88 05/31/23 19:48 Respiratory Rate 18 05/31/23 19:48 Blood Pressure 198/81 H 05/31/23 19:48 Pulse Oximetry 95 05/31/23 19:48 Temperature 36.6 C 05/31/23 19:48 Temperature Source Oral 05/31/23 19:48 Pulse 49 L 05/31/23 20:22 Pulse 80 05/31/23 20:23 Respiratory Rate 15 05/31/23 20:23 Respiratory Effort Non-Labored 05/31/23 19:51 Respiratory Depth Normal 05/31/23 19:51 Respiratory Pattern Normal 05/31/23 19:51 Blood Pressure 149/58 H 05/31/23 20:22 Blood Pressure Mean 91 05/31/23 20:22 Pulse Oximetry 95 05/31/23 19:48 Oxygen Delivery Method Room Air 05/31/23 19:48 Oxygen Flow Rate 0 05/31/23 19:48 Pain Level 10 05/31/23 20:20 Lab/Test Results Lab/Test Results: Laboratory Tests Range/Units 05/31/23 19:55 WBC (4.4-10.8) 10^3/uL 7.13 RBC (4.36-5.78) 10^6/uL 5.05 Hgb (13.5-17.5) g/dL 13.2 L Hct (40.0-50.0) % 40.3 MCV (80-95) fL 80 MCH (27.0-33.0) pg 26.1 L MCHC (32.0-36.0) % 32.8 RDW (11.8-14.1) % 13.8 Plt Count (130-400) 10^3/uL 179 MPV (8.0-11.0) fL 10.9 Immature Gran % 0.3 Neutrophils % 66.5 Lymphocytes % 23.1 Monocytes % 8.6 Eosinophils % 1.1 Basophils % 0.4 Nucleated RBC % (0.0-0.3) % 0.0 Absolute Neutrophils (1.2-6.7) 10^3/uL 4.74 Absolute Lymphocytes (1.2-3.4) 10^3/uL 1.65 Absolute Monocytes (0.1-0.8) 10^3/uL 0.61 Absolute Eosinophils (0.0-0.7) 10^3/uL 0.08 Absolute Basophils (0.0-0.2) 10^3/uL 0.03 Sodium (136-145) mmol/L 139 Potassium (3.5-5.1) mmol/L 3.8 Chloride (98-107) mmol/L 102 Carbon Dioxide (21.0-32.0) mmol/L 28.0 Anion Gap (3-11) mmol/L 9.0 BUN (7-18) mg/dL 10 Creatinine (0.70-1.30) mg/dL 1.1 Est GFR (CKD-EPI 2020) (mL/min/1.73m2) 69.57 Glucose (74-106) mg/dL 118 H Calcium (8.5-10.1) mg/dL 9.5 Magnesium (1.8-2.4) mg/dL 1.6 L Total Bilirubin (0.2-1.0) mg/dL 0.3 AST (15-37) U/L 22 ALT (16-63) U/L 25 Alkaline Phosphatase (46-116) U/L 88 Troponin I (< or =60) ng/L < 50 Total Protein (6.4-8.2) g/dL 8.1 Albumin (3.4-5.0) g/dL 3.8 Medical Decision Making 2044 -- Patient was seen immediately on arrival. 78yo male with history of metastatic brain cancer status post craniotomy, here with occipital ORR and altered mental status. Patient hypertensive on arrival. Concern for acute intracranial hemorrhage vs CVA vs other. CT of the head was interpreted by radiology: No acute intracranial hemorrhage. Left occipital vasogenic edema/gliosis. Consider further evaluation with contrast-enhanced brain MRI as clinically indicated. Patient was given acetaminophen IV. Repeat blood pressure improved without intervention. --EKG was reviewed and interpreted by me: Please report, sinus rhythm 86 bpm with ventricular bigeminy at times. QTc 466. --Patient complained of nausea. I will give Zofran 4 mg IV. 2133 --I called [facility] to request transfer and spoke with Dr. Jean-Baptiste, neurosurgery, discussed ED presentation and course. CT imaging was sent for review. She recommends treating patient here at [facility] overnight, treating with Keppra 1 g IV and then continuing 500 mg twice daily for potential seizure, she recommends giving dexamethasone 10 mg IV. She agrees with obtaining CTA to a ssess for vascular occlusion. She recommends MRI with and without contrast be obtained in the morning. Patient reassessed and having recurrent nausea. I will give Zofran 4 mg IV. 2212 --CTA of the head was interpreted by radiology: No large vessel stenosis or occlusion. CTA of the neck was interpreted by radiology: No stenosis or occlusion. Spiculated right upper lobe nodule in this patient with emphysema suspect for neoplasm. Case was discussed with Dr. Aguila, on-call hospitalist, he will admit the patient. Lab Data Lab results reviewed: Yes I reviewed the patient's lab results. Labs: Laboratory Tests Range/Units 05/31/23 19:55 WBC (4.4-10.8) 10^3/uL 7.13 RBC (4.36-5.78) 10^6/uL 5.05 Hgb (13.5-17.5) g/dL 13.2 L Hct (40.0-50.0) % 40.3 MCV (80-95) fL 80 MCH (27.0-33.0) pg 26.1 L MCHC (32.0-36.0) % 32.8 RDW (11.8-14.1) % 13.8 Plt Count (130-400) 10^3/uL 179 MPV (8.0-11.0) fL 10.9 Immature Gran % 0.3 Neutrophils % 66.5 Lymphocytes % 23.1 Monocytes % 8.6 Eosinophils % 1.1 Basophils % 0.4 Nucleated RBC % (0.0-0.3) % 0.0 Absolute Neutrophils (1.2-6.7) 10^3/uL 4.74 Absolute Lymphocytes (1.2-3.4) 10^3/uL 1.65 Absolute Monocytes (0.1-0.8) 10^3/uL 0.61 Absolute Eosinophils (0.0-0.7) 10^3/uL 0.08 Absolute Basophils (0.0-0.2) 10^3/uL 0.03 Sodium (136-145) mmol/L 139 Potassium (3.5-5.1) mmol/L 3.8 Chloride (98-107) mmol/L 102 Carbon Dioxide (21.0-32.0) mmol/L 28.0 Anion Gap (3-11) mmol/L 9.0 BUN (7-18) mg/dL 10 Creatinine (0.70-1.30) mg/dL 1.1 Est GFR (CKD-EPI 2020) (mL/min/1.73m2) 69.57 Glucose (74-106) mg/dL 118 H Calcium (8.5-10.1) mg/dL 9.5 Magnesium (1.8-2.4) mg/dL 1.6 L Total Bilirubin (0.2-1.0) mg/dL 0.3 AST (15-37) U/L 22 ALT (16-63) U/L 25 Alkaline Phosphatase (46-116) U/L 88 Troponin I (< or =60) ng/L < 50 Total Protein (6.4-8.2) g/dL 8.1 Albumin (3.4-5.0) g/dL 3.8 Quality:SDOH Health Related Social Needs: No Data to Display PFSH All Active Problems (Updated 05/31/23 @ 22:22 by David Aguila MD) Confusion (Acute) Hypomagnesemia (Acute) Altered mental status (Acute) Headache (Acute) Brain edema (Acute) Lesion of nose (Acute) Anemia (Chronic) Chronic pain syndrome (Chronic) Addiction (Acute) Balance disorder (Acute) Insomnia (Acute) Peripheral neuropathy (Acute) Lung cancer (Chronic) Stage 4; r upper lobe Hypertension (Chronic) Brain tumor (Acute) s/p surgery; on antiseizure meds, from lung ca Vasogenic edema (Acute) Medical History Alcoholism Cellulitis Pneumothorax on right Surgical History 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 Brother Substance abuse Grandfather Heart disease Stroke Grandmother Heart disease heart failure Social History Smoking/Tobacco Use Status: Former Tobacco Use Quit Date: 03/20/19 Tobacco: How many years used: 50 Smokeless tobacco user: other Smoking risk assessment performed?: Yes Alcohol Intake: former Drug use: Never Substance use type: does not use Household members: spouse Housing: house Communication Needs: None Do you need help understanding health information?: Rarely Pets and animals: Yes Pets and animals: cat(s) Sexually active: No Do you think of yourself as: straight/heterosexual Current gender identity: male What is your relationship status?: How often do you talk on the phone with friends or family?: once per week How often do you get together with friends or relatives?: once per week How often do you attend zoroastrianism or worship services?: decline to answer Do you belong to any clubs or organized social groups?: no Panel score (0-1 are the most socially isolated patients): 1 What type of physical activity do you participate in: none Karen/Islam: None Special karen needs: No Seatbelt use: always Drive intox or ride w/intox new aut[employer] 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 driver: No Do you feel safe at home: Yes Do you feel safe in your relationship?: Yes Discharge Plan Disposition Patient Disposition: Admit to [facility] Condition: Serious Discharge Details Chief Complaint: GenMedical Clinical Impression: Brain edema, Headache, Altered mental status, Hypomagnesemia Primary Care Provider: Arline Chauhan ED Provider: Seb Pavon Home Meds and New Rx's Prescriptions: No Action acetaminophen 500 mg tablet 1,000 mg PO Q6H PRN sennosides-docusate sodium [Senna with Docusate Sodium] 8.6-50 mg tablet 1 tab-cap PO DAILY hydroxychloroquine 100 mg tablet 100 mg PO BID Shingrix (PF) 50 mcg/0.5 mL suspension for reconstitution 0.5 ml IM ONCE Qty: 1 1RF Rx Instructions: as a single dose. Repeat in 2 months mupirocin 2 % ointment 1 applic topical BID Qty: 30 0RF amitriptyline 100 mg tablet 125 mg PO QHS Qty: 120 4RF clonidine HCl 0.1 mg tablet 0.05 mg PO Q6H Qty: 180 5RF methadone 5 mg tablet 5 mg PO DAILY MDD 5 Qty: 30 0RF Rx Instructions: chronic pain;
--- NOTE | 2023-05-31 21:00 | DI.CT_ITS ---
Exam(s) CT BRAIN NECK CTA EXAM: CT BRAIN NECK CTA CLINICAL HISTORY: right neglect, occipital ORR, altered mental status. TECHNIQUE: Imaging Protocol: Axial CT angiography was performed with multi-slice acquisition and mu lti-planar and MIP reconstructions. CONTRAST MATERIAL: Intravenous: Omnipaque 350 Contrast volume:100 ml COMPARISON: Noncontrast head CT 01 April 2019. Brain MRI [address] HEAD - STROKE PROTOCOL from 05/31/[address] 15 August 2019 FINDINGS: CT Head W contrast: Ventricles and Extra axial spaces: Normal in size and morphology for the patient's age. Hemorrhage: None. Cerebral parenchyma: Area of low attenuation in the left parietal lobe which is new compared with MRI but appears similar to the [address] Abnormal enhancement seen in the periphery of the hig h left parietal region near the craniotomy defect. No other areas of abnormal enhancement. Midline shift: None. Brainstem/Cerebellum: No acute findings.. Calvarium: High left parietal craniotomy defect. Visualized Paranasal sinuses/Mastoids: Mucous retention in right maxillary sinus. Soft Tissues: Unremarkable. CTA Brain W: Internal Carotid Arteries: Petrous: Normal. Cavernous: Normal. Cerebral: Normal. Middle Cerebral Arteries: Right: No aneurysm, occlusion or significant stenosis. Left: No aneurysm, occlusion or significant stenosis. Anterior Cerebral Arteries: Right: Hypoplasia of right A1 segment, normal variant. No aneurysm, occlusion or significant stenosi s. Left: No aneurysm, occlusion or significant stenosis. Posterior cerebral Arteries: Right: No aneurysm, occlusion or significant stenosis. Left: No aneurysm, occlusion or significant stenosis. Vertebral Arteries: Right: No aneurysm, occlusion or significant stenosis. Left: No aneurysm, occlusion or significant stenosis. Basilar Artery: No aneurysm, occlusion or significant stenosis. CTA Neck W: Common Carotid: Right: Mild calcific plaque at the bulb. No dissection, occlusion or significant stenosis. Left: Mild calcific plaque at the bulb. No dissection, occlusion or significant stenosis. External Carotid: Right: No dissection, occlusion or significant stenosis. Left: No dissection, occlusion or significant stenosis. Internal Carotid: Right: No dissection, occlusion or significant stenosis. Left: No dissection, occlusion or significant stenosis. Vertebral Artery: Right: No dissection, occlusion or significant stenosis. Left: No dissection, occlusion or significant stenosis. Lung Apices: Spiculated mass right upper lobe 2.3 x 3 cm, somewhat smaller than on prior. Underlying emphysematous changes. Bones: No acute abnormality. Soft Tissues: Normal. IMPRESSION: 1. CTA brain: Normal CTA examination of the [place]. 2. Head CT: Abnormal area of enhancement in the posterior left high parietal lobe with significant brito rrounding white matter edema suspicious for recurrence of metastatic lesion. 3. CTA neck: Mild calcific plaque at the common carotid bulbs. No stenosis. Spiculated mass right upper lobe, slightly smaller than prior. RADIATION DOSE DELIVERED: 1,226.73mGy.cm Total DLP DATA REPOSITORY: All CT scans at this facility are submitted to the National Radiology Data Registry (NRDR) Dose Index Registry (DIR) with the [employer] (ACR). RADIATION OPTIMIZATION: All CT scans at this facility use at least one of these dose optimization te chniques: automated exposure control; mA and/or kV adjustment per patient size (includes targeted exa ms where dose is matched to clinical indication); or iterative reconstruction.
[2023-05-31] MEDS: Omnipaque 350 MG/ML 100 ML BTL IJ (21:09)
[2023-05-31] MEDS: Normal Saline - Diluent 50 ML VIAL IJ (21:10)
[2023-05-31] MEDS: levETIRAcetam 1,000 MG in Normal Saline 100 ML 400 MG IVPB (21:44)
[2023-05-31] MEDS: Magnesium Oxide 400 MG TAB 800 MG PO (21:45)
[2023-05-31] MEDS: Dexamethasone 10 MG/ML VIAL IVP (21:45)
--- NOTE | 2023-05-31 21:51 | DI.VRAD_ITS ---
PROCEDURE INFORMATION: Exam: CTA Head With Contrast, Arteriography Exam date and time: 05/31/2023 9:28 PM Age: 78 years old Clinical indication: Other: Right neglect, occipital ORR altered mental status TECHNIQUE: Imaging protocol: Computed tomographic angiography of the head with contrast. Exam focused on the arteries. 3D rendering (Not supervised by radiologist): MIP and/or 3D reconstructed images were created by the technologist. Radiation optimization: All CT scans at this facility use at least one of these dose optimization techniques: automated exposure control; mA and/or kV adjustment per patient size (includes targeted exams where dose is matched to clinical indication); or iterative reconstruction. Contrast material: OMNIPAQUE 350; Contrast volume: 85 ml; Contrast route: INTRAVENOUS (IV); COMPARISON: CT HEAD - STROKE PROTOCOL 05/31/2023 8:03 PM FINDINGS: ANTERIOR CIRCULATION: Right internal carotid artery: Intracranial segment is patent with no significant stenosis. No aneurysm. Right middle cerebral artery: No occlusion or significant stenosis. No aneurysm. Right anterior cerebral artery: Hypoplasia of the right A1 segment, a normal variation No occlusion or significant stenosis. No aneurysm. Left internal carotid artery: Intracranial segment is patent with no significant stenosis. No aneurysm. Left middle cerebral artery: No occlusion or significant stenosis. No aneurysm. Left anterior cerebral artery: No occlusion or significant stenosis. No aneurysm. POSTERIOR CIRCULATION: Right vertebral artery: No occlusion or significant stenosis. No aneurysm. Left vertebral artery: No occlusion or significant stenosis. No aneurysm. Basilar artery: No occlusion or significant stenosis. No aneurysm. Right posterior cerebral artery: No occlusion or significant stenosis. No aneurysm. Left posterior cerebral artery: No occlusion or significant stenosis. No aneurysm. Brain: No definite mass, mass effect, or midline shift. Cerebral ventricles: No ventriculomegaly. Bones/joints: Unremarkable. No acute fracture. Soft tissues: Unremarkable. IMPRESSION: No large vessel stenosis or occlusion. PROCEDURE INFORMATION: Exam: CTA Neck With Contrast Exam date and time: 05/31/2023 9:28 PM Age: 78 years old Clinical indication: Other: Right neglect, occipital ORR altered mental status TECHNIQUE: Imaging protocol: Computed tomographic angiography of the neck with contrast. Exam focused on the cervical segments of the vasculature. 3D rendering (Not supervised by radiologist): MIP and/or 3D reconstructed images were created by the technologist. Radiation optimization: All CT scans at this facility use at least one of these dose optimization techniques: automated exposure control; mA and/or kV adjustment per patient size (includes targeted exams where dose is matched to clinical indication); or iterative reconstruction. Contrast material: OMNIPAQUE 350; Contrast volume: 85 ml; Contrast route: INTRAVENOUS (IV); COMPARISON: CT HEAD - STROKE PROTOCOL 05/31/2023 8:03 PM FINDINGS: Right common carotid artery: No stenosis. No dissection or occlusion. Right internal carotid artery: Calcified plaque at the bulb No stenosis of the extracranial segment. No dissection or occlusion. Right external carotid artery: No occlusion or stenosis of the origin. Left common carotid artery: No stenosis. No dissection or occlusion. Left internal carotid artery: Calcified plaque noted at the bulb No stenosis of the extracranial segment. No dissection or occlusion. Left external carotid artery: No occlusion or stenosis of the origin. Right vertebral artery: No stenosis. No dissection or occlusion. Left vertebral artery: No stenosis. No dissection or occlusion. Soft tissues: Normal. No significant soft tissue swelling. Bones/joints: No acute fracture. Spiculated nodule right upper lobe measuring up to 2.7 cm. Emphysema noted IMPRESSION: No stenosis or occlusion. Spiculated right upper lobe nodule in this patient with emphysema suspect for neoplasm REFERENCES: NASCET CRITERIA. The degree of stenosis in the cervical segment of the internal carotid artery is based on NASCET criteria. Normal is no stenosis. Mild is less than 50% stenosis. Moderate is 50-69% stenosis. Severe is 70% to 99% stenosis. Total occlusion is no detectable patent lumen. Dictated and Authenticated by: Raulito Main MD. Ordering:GM Grigsby MD
--- NOTE | 2023-05-31 22:05 | W.PM.HP.N ---
Date of service: 05/31/23 Time of Service: 22:09 Assessment and Plan Assessment and plan (1) Confusion: Status: Acute Assessment and plan: Altered mental status, seems to be resolving, with ORR, nausea and CT findings of vasogenic edema. Possible stroke, seizure, tumor recurrence most likely. Will obtain MRI, continue Keppra and steroids in meantime. Will treat ORR and nausea symptomatically. Reviewed ADs, requests DNR. History of Present Illness History of Present Illness Chief Complaint: ORR and confusion Narrative: 78 male with h/o lung cancer metastatic to brain, s/p craniotomy 2019, s/p XRT. Per ER conversation with neurosurgery last MRI 07/03 showed no evidence intracranial disease. Here tonight with rather abrupt left sided headache along with period of confusion and walking into objects on his right side. Has also had some nausea. In ER findings of note for CT head showing large area of edema left occipito-parietal (to my read, formal read just occipital), no bleed, no shift.Mental status has since largely resolved, has received Keppra, Dexamethasone and Zofran. At present still some ORR, though improved and stating he is hungry. confirms that mental status is much improved, though not quite to baseline. Review of Systems Narrative: per HPI PFSH All Active Problems (Updated 05/31/23 @ 22:22 by David Aguila MD) Confusion (Acute) Hypomagnesemia (Acute) Altered mental status (Acute) Headache (Acute) Brain edema (Acute) Lesion of nose (Acute) Anemia (Chronic) Chronic pain syndrome (Chronic) Addiction (Acute) Balance disorder (Acute) Insomnia (Acute) Peripheral neuropathy (Acute) Lung cancer (Chronic) Stage 4; r upper lobe Hypertension (Chronic) Brain tumor (Acute) s/p surgery; on antiseizure meds, from lung ca Vasogenic edema (Acute) Medical History Alcoholism Cellulitis Pneumothorax on right Surgical History 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 Brother Substance abuse Grandfather Heart disease Stroke Grandmother Heart disease heart failure Social History Smoking/Tobacco Use Status: Former Tobacco Use Quit Date: 03/20/19 Tobacco: How many years used: 50 Smokeless tobacco user: other Smoking risk assessment performed?: Yes Alcohol Intake: former Drug use: Never Substance use type: does not use Household members: spouse Housing: house Communication Needs: None Do you need help understanding health information?: Rarely Pets and animals: Yes Pets and animals: cat(s) Sexually active: No Do you think of yourself as: straight/heterosexual Current gender identity: male What is your relationship status?: How often do you talk on the phone with friends or family?: once per week How often do you get together with friends or relatives?: once per week How often do you attend islam or amish services?: decline to answer Do you belong to any clubs or organized social groups?: no Panel score (0-1 are the most socially isolated patients): 1 What type of physical activity do you participate in: none Karen/Scientology: None Special karen needs: No Seatbelt use: always Drive intox or ride w/intox mechanic driver: No Do you feel safe at home: Yes Do you feel safe in your relationship?: Yes Meds Allergies and Home Medications Allergies Allergy/AdvReac Type Severity Reaction Status Date / Time codeine AdvReac unknown Verified 05/31/23 20:01 estazolam AdvReac sleepwalkin Verified 05/31/23 20:01 g sertraline AdvReac anxious, Verified 05/31/23 20:01 dizzy Home Medications Medication Instructions Recorded Confirmed Type acetaminophen 500 mg tablet 1,000 mg PO Q6H PRN 04/04/19 05/31/23 History sennosides 8.6 mg-docusate sodium 1 tab-cap PO DAILY 09/11/20 05/31/23 History 50 mg tablet (Senna with Docusate Sodium) hydroxychloroquine 100 mg tablet 100 mg PO BID 09/26/21 05/31/23 History varicella-zoster glycoE [id number] 0.5 ml IM ONCE #1 ea 07/01/22 05/31/23 Rx adj(PF) 50 mcg/0.5 mL IM susp, kit (Shingrix (PF)) amitriptyline 100 mg tablet 125 mg (1.25 x 100 mg) PO QHS #120 07/24/22 05/31/23 Rx tabs clonidine HCl 0.1 mg tablet 0.05 mg (1/2 x 0.1 mg) PO Q6H #180 07/24/22 05/31/23 Rx tabs mupirocin 2 % topical ointment 1 applic topical BID #30 grams 09/22/22 05/31/23 Rx methadone 5 mg tablet 5 mg PO DAILY #30 tabs 05/27/23 05/31/23 Rx Exam Narrative Exam Narrative: 151/62, 76, 36.6, 10, 95% RA. HEENT atraumatic; neck supple; lungs clear; heart frequent ectopics; abdomen soft and NT; extremities w/o edema; neuro: Ox3 2.5 (knows date as late May 2022 0r 2023), does not know President; pupils approx 3 OD, 3.5 OS, both reactive, EOMI, gambino full to confrontation; no facial asymettry; motor 5/5, sensory intact light touch, toes downgoing Results Labs 05/31/23 19:55 05/31/23 19:55 Labs: Laboratory Results - last 24 hr 05/31/23 19:55 WBC 7.13 RBC 5.05 Hgb 13.2 L Hct 40.3 MCV 80 MCH 26.1 L MCHC 32.8 RDW 13.8 Plt Count 179 MPV 10.9 Immature Gran % 0.3 Neutrophils % 66.5 Lymphocytes % 23.1 Monocytes % 8.6 Eosinophils % 1.1 Basophils % 0.4 Nucleated RBC % 0.0 Absolute Neutrophils 4.74 Absolute Lymphocytes 1.65 Absolute Monocytes 0.61 Absolute Eosinophils 0.08 Absolute Basophils 0.03 Sodium 139 Potassium 3.8 Chloride 102 Carbon Dioxide 28.0 Anion Gap 9.0 BUN 10 Creatinine 1.1 Est GFR (CKD-EPI 2020) 69.57 Glucose 118 H Calcium 9.5 Magnesium 1.6 L Total Bilirubin 0.3 AST 22 ALT 25 Alkaline Phosphatase 88 Troponin I < 50 Total Protein 8.1 Albumin 3.8 Last Vital Signs Temp 36.6 C 05/31/23 19:48 Pulse 76 05/31/23 20:46 Resp 10 L 05/31/23 20:50 BP 151/62 H 05/31/23 20:46 Pulse Ox 95 05/31/23 19:48 Time Spent Time spent with Patient: 55-74 minutes Time was spent: preparing to see the patient(eg.review tests), obtaining and/or reviewing separately otained hiistory, ordering medications,tests, procedures, referring, communicating with other health healthcare corporate account director and indepentently interpreting results
[2023-06-01] VITALS (14 sets, daily range): BP systolic 98–173; BP diastolic 58–87; PULSE 68–85; RESP 16–27; TEMP 35.6–36.9; O2SAT 93–95
--- NOTE | 2023-06-01 | DI.MRI_ITS ---
Exam(s) MR BRAIN WO/W EXAM: MR BRAIN WO/W CLINICAL HISTORY: confusion, edema left occipital. TECHNIQUE: Multiplanar multisequence MRI of the brain was performed. CONTRAST MATERIAL: IV Contrast: 17 ML of Dotarem contrast administered. FINDINGS: VENTRICLES AND EXTRA AXIAL SPACES: Normal in size and morphology for the patient's age. HEMORRHAGE: None. CEREBRAL PARENCHYMA: No focus of restricted diffusion to suggest acute infarct. Significantly increas ed area white matter edema in the left parietal region compared with prior MRI. Stable areas of high signal in the periventricular white matter on the right. Abnormal enhancement now seen in the poste rior high left parietal peripherally region near the craniotomy defect, measuring 2.2 by in 2.5 by 1. 8 cm.. This was not present on the prior exam. No other foci of abnormal enhancement seen elsewhere in the brain. MIDLINE SHIFT: None. BRAINSTEM/CEREBELLUM: Normal. CALVARIUM: Normal. ENHANCEMENT: No suspicious enhancement identified. VISUALIZED PARANASAL SINUSES/MASTOIDS: Gross retention left maxillary sinus. Orbits: Unremarkable. Pituitary: Normal. Vasculature: Normal flow voids. IMPRESSION: New area of masslike enhancement in the posterior superior left parietal lobe in area of previous alejandro lamont, consistent with recurrence. Significant associated white matter edema in the left parietal lob e. No other sites of mass or abnormal enhancement. DATA REPOSITORY:
[2023-06-01 00:17] LABS: Troponin I < 50 ng/L (< or =60)
[2023-06-01 00:19] LABS: Bilirubin Negative (Negative); Blood Trace-intact (Negative); Clarity Clear (Clear); Glucose Negative (Negative); Ketones Negative (Negative); Leukocyte Esterase Negative (Negative); Nitrite Negative (Negative); Specific Gravity 1.015 (1.005-1.025); Urobilinogen 0.2 mg/dL (Up to 0.2)
[2023-06-01 00:24] LABS: Bacteria Rare HPF (Negative); C & S Indicated? No; Crystals Negative HPF (Negative); Epithelial Cells Negative HPF (Negative); Mucus Negative (Negative); RBC 0-2 HPF (0-2); WBC Negative HPF (0-5)
[2023-06-01] MEDS: Aspirin 325 MG TAB PO (00:24)
[2023-06-01] MEDS: oxyCODONE 10 MG TAB PO ×5 (00:25→21:42)
--- NOTE | 2023-06-01 00:32 | NUR.NOTE ---
this RN took PT over at 2200. the Nicardipine drip was ordered at 2030 and held at that time. Will continue to monitor PT. Nursing Note:
[2023-06-01] MEDS: cloNIDine 0.1 MG TAB 0.05 MG PO ×5 (01:28→22:54)
[2023-06-01] MEDS: ACETAMINOPHEN 1,000 MG/100 ML BTL 400 MG IVPB ×2 (02:02→07:38)
[2023-06-01] MEDS: Dexamethasone 4 MG TAB PO ×2 (07:37→20:19)
[2023-06-01] MEDS: Nicotine 21 MG/24 HR PATCH TD (07:37)
[2023-06-01] MEDS: Hydroxychloroquine 200 MG TAB 100 MG PO ×2 (07:37→20:18)
[2023-06-01] MEDS: Sennosides/Docusate Sodium TAB 1 TAB PO (07:37)
[2023-06-01] MEDS: Normal Saline Flush 10 ML SYR IVP ×4 (07:38→20:19)
--- NOTE | 2023-06-01 08:01 | W.PALLCONSUL ---
Date of service: 06/01/23 Time of Service: 08:01 History of Present Illness History of Present Illness Chief Complaint: Period Of mental confusion Narrative: Damian is a 78-year-old man who has stage IV lung cancer. Despite this grim prognosis with mets to his brain status post brain surgery, he has been stable. He stated that yesterday he was looking at some pictures and developing them, when he felt that he was getting foggy and confused. The last time he had this was when his metastasis to his brain was discovered. His did bring him to the hospital and he was able to ambulate to the car and into the ER. He does not feel any deficits just this confusion. He Does feel Confusion that has improved He knows there is a lot of tests ordered. Assessment and Plan Assessment and plan (1) Confusion: Status: Acute (2) Brain edema: Status: Acute (3) Chronic pain syndrome: Status: Chronic (4) Lung cancer: Status: Chronic (5) Brain tumor: Status: Acute Assessment and plan: Damian has had a long history with me. After his brain surgery all of his checkups with oncology have been very good. He has not had any recent flares in his lung cancer. He does have chronic pain and has done very well on methadone. He is on the same dosage and follows all of the rules of controlled substances. He needs to remain on methadone during his stay We await the MRI and neurology consult. Hopefully this is not a recurrence of his lung cancer although he did say that he is only twice had the feeling that he had in the last time was when his brain mets became apparent Review of Systems Narrative: Mental confusion has cleared, no shortness of breath, no constipation, he does have severe joint pain but this is at its baseline. [facility] All Active Problems (Updated 05/31/23 @ 22:22 by David Aguila MD) Confusion (Acute) Hypomagnesemia (Acute) Altered mental status (Acute) Headache (Acute) Brain edema (Acute) Lesion of nose (Acute) Anemia (Chronic) Chronic pain syndrome (Chronic) Addiction (Acute) Balance disorder (Acute) Insomnia (Acute) Peripheral neuropathy (Acute) Lung cancer (Chronic) Stage 4; r upper lobe Hypertension (Chronic) Brain tumor (Acute) s/p surgery; on antiseizure meds, from lung ca Vasogenic edema (Acute) Medical History Alcoholism Cellulitis Pneumothorax on right Surgical History 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 Brother Substance abuse Grandfather Heart disease Stroke Grandmother Heart disease heart failure Social History Smoking/Tobacco Use Status: Former Tobacco Use Quit Date: 03/20/19 Tobacco: How many years used: 50 Smokeless tobacco user: other Smoking risk assessment performed?: Yes Alcohol Intake: former Drug use: Never Substance use type: does not use Household members: spouse Housing: house Communication Needs: None Do you need help understanding health information?: Rarely Pets and animals: Yes Pets and animals: cat(s) Sexually active: No Do you think of yourself as: straight/heterosexual Current gender identity: male What is your relationship status?: How often do you talk on the phone with friends or family?: once per week How often do you get together with friends or relatives?: once per week How often do you attend religion or adventism services?: decline to answer Do you belong to any clubs or organized social groups?: no Panel score (0-1 are the most socially isolated patients): 1 What type of physical activity do you participate in: none Karen/Protestant: None Special karen needs: No Seatbelt use: always Drive intox or ride w/intox local owner operator truck driver: No Do you feel safe at home: Yes Do you feel safe in your relationship?: Yes Exam Narrative Exam Narrative: 78-year-old man alert and oriented today. He is moving all 4 extremities and has good strength in both upper and lower extremities. He. Appears to be cognitively at his baseline. His heart is regular. His lungs are clear. Mood is good Results Last Vital Signs Temp 97.5 F L 06/01/23 01:09 Pulse 73 06/01/23 02:28 Resp 16 06/01/23 01:14 BP 151/87 H 06/01/23 02:28 Pulse Ox 95 06/01/23 01:09 Labs 05/31/23 19:55 05/31/23 19:55 Labs: Laboratory Results - last 24 hr 05/31/23 05/31/23 05/31/23 19:55 23:52 23:55 WBC 7.13 RBC 5.05 Hgb 13.2 L Hct 40.3 MCV 80 MCH 26.1 L MCHC 32.8 RDW 13.8 Plt Count 179 MPV 10.9 Immature Gran % 0.3 Neutrophils % 66.5 Lymphocytes % 23.1 Monocytes % 8.6 Eosinophils % 1.1 Basophils % 0.4 Nucleated RBC % 0.0 Absolute Neutrophils 4.74 Absolute Lymphocytes 1.65 Absolute Monocytes 0.61 Absolute Eosinophils 0.08 Absolute Basophils 0.03 Sodium 139 Potassium 3.8 Chloride 102 Carbon Dioxide 28.0 Anion Gap 9.0 BUN 10 Creatinine 1.1 Est GFR (CKD-EPI 2020) 69.57 Glucose 118 H Calcium 9.5 Magnesium 1.6 L Total Bilirubin 0.3 AST 22 ALT 25 Alkaline Phosphatase 88 Troponin I < 50 < 50 Total Protein 8.1 Albumin 3.8 Urine Color Yellow Urine Clarity Clear Urine pH 8.0 Ur Specific [place] 1.015 Urine Protein Negative Urine Ketones Negative Urine Blood Trace-intact H Urine Nitrite Negative Urine Bilirubin Negative Urine Urobilinogen 0.2 Ur Leukocyte Esterase Negative Urine RBC 0-2 Urine WBC Negative Ur Epithelial Cells Negative Urine Crystals Negative Urine Bacteria Rare Urine Mucus Negative Ur Culture Indicated? No Urine Glucose Negative Imaging Imaging Studies: OMPARISON: CT HEAD - STROKE PROTOCOL 05/31/2023 8:03 PM FINDINGS: ANTERIOR CIRCULATION: Right internal carotid artery: Intracranial segment is patent with no significant stenosis. No aneurysm. Right middle cerebral artery: No occlusion or significant stenosis. No aneurysm. Right anterior cerebral artery: Hypoplasia of the right A1 segment, a normal variation No occlusion or significant stenosis. No aneurysm. Left internal carotid artery: Intracranial segment is patent with no significant stenosis. No aneurysm. Left middle cerebral artery: No occlusion or significant stenosis. No aneurysm. Left anterior cerebral artery: No occlusion or significant stenosis. No aneurysm. POSTERIOR CIRCULATION: Right vertebral artery: No occlusion or significant stenosis. No aneurysm. Left vertebral artery: No occlusion or significant stenosis. No aneurysm. Basilar artery: No occlusion or significant stenosis. No aneurysm. Right posterior cerebral artery: No occlusion or significant stenosis. No aneurysm. Left posterior cerebral artery: No occlusion or significant stenosis. No aneurysm. Brain: No definite mass, mass effect, or midline shift. Cerebral ventricles: No ventriculomegaly. Bones/joints: Unremarkable. No acute fracture. Soft tissues: Unremarkable. IMPRESSION: No large vessel stenosis or occlusion.
--- NOTE | 2023-06-01 08:06 | NT_ITS ---
Occupational Therapy Notes 06/01/23 OT consult received and pt chart was reviewed. OT went in to see pt who reported that he was doing well but had a headache. He notes that he feels like he has all of his DME needs met at home and notes that his is a Physical Therapist and assists him as needed but in regards to his CLOF he feels that he is at his baseline at this time. He does not feel that he needs skilled OT services moving forward but was appreciative of the consult. UE strength was 4+/5 throughout, [place] sitting balance which was normal. Able to put on his socks (I) seated in bed. [place] AROM of (B) UE to perform eating- Clear liquids until speech consult but was able to bring cup to his mouth. Marcia Alfredo, OTR/L
[2023-06-01] MEDS: Methadone 5 MG TAB PO (08:43)
[2023-06-01] MEDS: Gadoterate meglumine 20 ML SYRINGE 17 ML IVP (09:08)
[2023-06-01] MEDS: levETIRAcetam 1,000 MG in Normal Saline 100 ML 400 MG IVPB (11:19)
[2023-06-01 13:46] LABS: Anion Gap 10.5 mmol/L (3-11); BUN 13 mg/dL (7-18); CO2 24.5 mmol/L (21.0-32.0); CREATININE 1.2 mg/dL (0.70-1.30); Calcium 9.5 mg/dL (8.5-10.1); Chloride 99 mmol/L (98-107); Estimated GFR 62.67 (mL/min/1.73m2); Glucose 154 mg/dL (74-106); Magnesium 1.7 mg/dL (1.8-2.4); Potassium 4.1 mmol/L (3.5-5.1); Sodium 134 mmol/L (136-145)
--- NOTE | 2023-06-01 14:14 | SP_ITS ---
Date of service: 06/01/23 Time of Service: 11:40 Subjective Clinical (Bedside) Swallow Evaluation Speech Language Pathology Referred by: Dr. Thomas Referral Type: Clinical Swallow Evaluation Reason for Referral/HPI: Martinez Gonzalez is a 78 yo male adm to [facility] 05/31/23 with altered mental status/confusion, expressive aphasia, and severe headache. His (who is a PT) reports he was using non-sense words such as [place] when speaking, though his articulation was clear. Language symptoms have since fully resolved, and headache has improved to 2-3/10 severity. PMH is significant for hx lung CA with brain mets, status post craniectomy and immunotherapy in 2019. He is pending work-up to determine recurrence of brain mets. THERMAL CUTTING MACHINE OPERATOR evaluation placed to assess dysphagia - patient on clear liquid diet pending THERMAL CUTTING MACHINE OPERATOR clearance per nursing. THERMAL CUTTING MACHINE OPERATOR IMPRESSIONS & RECOMMENDATIONS: Damian presents with within normal limits oral pharyngeal swallow function. Oral mechanism examination revealed WNL strength, ROM, and coordination of articulators. There is no evidence of residual aphasia or indications of motor speech impairment within conversation or picture description activities. Recommend diet upgrade to regular consistency/thin liquids. Education was provided to Damian and his re: rationale of THERMAL CUTTING MACHINE OPERATOR evaluation/findings. Should expressive aphasia symptoms return, Damian may benefit from consultation with THERMAL CUTTING MACHINE OPERATOR in outpatient setting. No acute needs identified at this time. FURTHER THERMAL CUTTING MACHINE OPERATOR SERVICES: No further THERMAL CUTTING MACHINE OPERATOR services indicated Diet Recommendations: SOLIDS: Regular Solids LIQUIDS: Thin Liquids MEDICATIONS: Whole with sip of liquid SUPERVISION: Independent SUBJECTIVE: Patient received alert/awake, agreeable to evaluation Pain Reported? 2/10 headache Baseline Swallow Function: Patient denies swallowing difficulty prior to admission and eats a regular diet at baseline. He is edentulous, and favors soft food at baseline. PO Trials Assessed: IDDSI 0 Thin Liquids via straw IDDSI 7EC Easy to Chew Solid - [place] with butter Oral Mechanism Examination: Patient is edentulous. Oral mucosa is moist/WNL. Cranial Nerve Assessment: CN V ? Trigeminal Facial Sensation WNL Jaw Strength/ROM WNL ?WNL CN VII- Facial WNL labial ROM, strength, coordination. WNL lingual sensation WNL CN IX ? Glossopharyngeal WNL palatal elevation with phonation. No evidence of nasal emissions WNL CN X ? Vagus WNL Vocal quality and volume. Strong/sharp volitional cough WNL CX XII ? Hypoglossal WNL lingual ROM, strength, coordination WNL Oral Phase Findings: Prolonged mastication as consistent with edentulous status; WFL Pharyngeal Phase Findings: WFL. No evidence of coughing, throat clearing, change in vocal quality. ? Graham Swallow Protocol Results: PASS, Complete/uninterrupted without s/sx aspiration Language Screening: Diamond Thecarlos Picture Description: Patient provided 4 sentences accurately describing photograph without evidence of anomia/paraphasias. Syntax and semantics intact. ??? ASSESSMENT: Further THERMAL CUTTING MACHINE OPERATOR Services not indicated. Recommendation at Discharge: No further THERMAL CUTTING MACHINE OPERATOR needs indicated at this time. If aphasia returns, outpatient vs home health THERMAL CUTTING MACHINE OPERATOR may be beneficial Suggested Referrals: N/A Recommended Procedures: N/A Education Provided to: Patient, family/, nursing Topics Addressed: THERMAL CUTTING MACHINE OPERATOR Findings, Role of care PLAN: Evaluation only. Please re-consult if further needs arise THERMAL CUTTING MACHINE OPERATOR CPT Code: 83047 Clinical Swallowing Evaluation TOTAL TIME: 20 Minutes [id number] Coding CPT Codes EVALUATE SWALLOWING FUNCTION - 86391 ([id number]) Additional Codes Date of Service (66584) Date of service: 06/01/23
--- NOTE | 2023-06-01 15:23 | NT_ITS ---
PT Notes Visit Reasons: altered mental status Patient with veterinary laboratory technician Jules who was setting up procedure when PT came in. Patient Financial Advocate said that procedure will take 1.5 hours. Will see patient tomorrow morning for PT evalauation, as ordered.
--- NOTE | 2023-06-01 16:29 | PDOC.CMIN ---
Date of service: 06/01/23 Time of Service: 16:30 Care Management Initial Assmt Initial Assessment REASON FOR HOSPITALIZATION:: AMS PREVIOUS FUNCTIONAL STATUS/SOCIAL/FAMILY SUPPORTS:: Independent at baseline in the community, IV Lung Cancer with brain mets, has had brain surgery remains stable until recent period of confusion, now much closer to baseline. CURRENT FUNCTIONAL STATUS:: Awaiting MRI and neuro consult. Out of room most of the afternoon, awaiting his return. ADVANCE DIRECTIVES:: [facility] on file; Gissel as agent. Has patient been provided with info about the portal/API?: Yes Did the patient sign up for the portal?: Yes CODE STATUS:: DNR/DNI INSURANCE COVERAGE / FINANCIAL ISSUES:: [facility] PRIMARY CARE PHYSICIAN:: Dr. Chauhan; follows closely. POTENTIAL DISCHARGE NEEDS:: Follow up appointments. PATIENT/FAMILY EDUCATION NEEDS:: Review discharge instructions, discuss Ask Me Three. ANTICIPATED BARRIERS TO DISCHARGE:: None identified. TRANSPORTATION:: Via private vehicle with . PLAN:: Anticipate Martinez will return home when ready per MD. CM continues to follow. PFSH All Active Problems (Updated 06/02/23 @ 12:40 by Nancy Thomas MD) Hyponatremia (Acute) Discharge planning issues (Acute) DVT prophylaxis (Acute) Encephalopathy acute (Acute) Brain lesion (Acute) Confusion (Acute) Hypomagnesemia (Acute) Altered mental status (Acute) Headache (Acute) Brain edema (Acute) Lesion of nose (Acute) Anemia (Chronic) Chronic pain syndrome (Chronic) Addiction (Acute) Balance disorder (Acute) Insomnia (Acute) Peripheral neuropathy (Acute) Lung cancer (Chronic) Stage 4; r upper lobe Hypertension (Chronic) Brain tumor (Acute) s/p surgery; on antiseizure meds, from lung ca Vasogenic edema (Acute) Medical History Alcoholism Cellulitis Pneumothorax on right Surgical History 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 Brother Substance abuse Grandfather Heart disease Stroke Grandmother Heart disease heart failure Social History Smoking/Tobacco Use Status: Former Tobacco Use Quit Date: 03/20/19 Tobacco: How many years used: 50 Smokeless tobacco user: other Smoking risk assessment performed?: Yes Alcohol Intake: former Drug use: Never Substance use type: does not use Household members: spouse Housing: house Communication Needs: None Do you need help understanding health information?: Rarely Pets and animals: Yes Pets and animals: cat(s) Sexually active: No Do you think of yourself as: straight/heterosexual Current gender identity: male What is your relationship status?: How often do you talk on the phone with friends or family?: once per week How often do you get together with friends or relatives?: once per week How often do you attend rastafarian or muslim services?: decline to answer Do you belong to any clubs or organized social groups?: no Panel score (0-1 are the most socially isolated patients): 1 What type of physical activity do you participate in: none Karen/Hoahaoism: None Special karen needs: No Seatbelt use: always Drive intox or ride w/intox certified driver examiner: No Do you feel safe at home: Yes Do you feel safe in your relationship?: Yes SDOH(Care Management) Screening Will the Patient Participate in the Screening?: Yes Do you worry about having a steady place to live?: no Problems where you live: no known problems In the past 12 months, have you had to go without electric, gas, oil or water in your home?: no Have you or anyone in your house had to go without enough food to eat?: no Has lack of transportation kept you from medical appointments or from doing things needed for daily living?: no Has anyone in your support network made you feel unsafe for any reason?: no
[2023-06-01] MEDS: Acetaminophen 325 MG TAB 650 MG PO (16:59)
--- NOTE | 2023-06-01 17:03 | PDOC.EEG_ITS ---
Neurology EEG EEG: [facility] Department of Neurology INPATIENT EEG REPORT Date of Recordin06/01/23 Interpreting Physician: Dr. Yadi Mcmillan Reason for study: Mr. Gonzalez is a 78 year-old with a history of metastatic lung cancer to the brain s/p resection on 03/25/19 and subsequent chemo therapy, who was admitted with increased headaches and confusion found to have likely recurrent brain metastasis. He has been started on levetiracteam 1000mg x1 -> 500mg BID and dexamethasone 10mg x1 -> 4mg BID. Current Medications: Current Medications Acetaminophen (Acetaminophen 325 Mg Tab) 650 mg PO Q4H PRN PRN Last Admin: 06/01/23 16:59 Dose: 650 mg Amitriptyline HCl (Amitriptyline 25 Mg Tab) 125 mg PO HS RACHELLE Clonidine (Clonidine 0.1 Mg Tab) 0.05 mg PO Q6H [facility] Last Admin: 06/01/23 16:59 Dose: 0.05 mg Dexamethasone (Dexamethasone 4 Mg Tab) 4 mg PO BID [facility] Last Admin: 06/01/23 07:37 Dose: 4 mg Gadoterate Meglumine (Gadoterate Meglumine 20 Ml Syringe) 17 ml IVP DIRECTED [facility] Stop: 07/01/23 23:59 Last Admin: 06/01/23 09:08 Dose: 17 ml Hydroxychloroquine Sulfate (Hydroxychloroquine 200 Mg Tab) 100 mg PO BID [facility] Last Admin: 06/01/23 07:37 Dose: 100 mg Acetaminophen (Ofirmev) 1,000 mg in 100 mls @ 400 mls/hr IVPB Q6H [facility] Last Admin: 06/01/23 14:40 Dose: Not Given Levetiracetam 1,000 mg/ Sodium (Chloride) 110 mls @ 400 mls/hr IVPB Q12H [facility] Last Infusion: 06/01/23 11:50 Dose: Infused Magnesium Sulfate/Dextrose () 1 gm in 100 mls @ 100 mls/hr IVPB NOW ONE Stop: 06/01/23 18:05 Methadone HCl (Methadone 5 Mg Tab) 5 mg PO DAILY [facility] Last Admin: 06/01/23 08:43 Dose: 5 mg Mupirocin (Mupirocin 2% Oint. 22 Gm Tube) 0 gm TP BID [facility] Last Admin: 06/01/23 07:38 Dose: Not Given Nicotine (Nicotine 21 Mg/24 Hr Patch) 21 mg TD DAILY [facility] Last Admin: 06/01/23 07:37 Dose: 21 mg Ondansetron HCl (Ondansetron 4 Mg/2 Ml Vial) 4 mg IVP Q4H PRN PRN Oxycodone HCl (Oxycodone 10 Mg Tab) 10 mg PO Q4H PRN PRN Last Admin: 06/01/23 17:00 Dose: 10 mg Senna/Docusate Sodium (Sennosides/Docusate Sodium Tab) 1 tab PO DAILY [facility] Last Admin: 06/01/23 07:37 Dose: 1 tab Sodium Chloride (Normal Saline Flush 10 Ml Syr) 0 ml IVP PRN PRN Sodium Chloride (Normal Saline Flush 10 Ml Syr) 0 ml IVP BID [facility] Last Admin: 06/01/23 07:38 Dose: 10 ml Sodium Chloride (Normal Saline 10 Ml Vial) 0 ml IJ DIRECTED PRN Sodium Chloride (Normal Saline Flush 10 Ml Syr) 0 ml IVP PRN PRN Last Admin: 05/31/23 21:11 Dose: 10 ml Sodium Chloride (Normal Saline Flush 10 Ml Syr) 10 ml IVP PRN PRN Last Admin: 06/01/23 09:07 Dose: 10 ml METHODS: A 21 channel digitized electroencephalogram was performed in the [facility] Med/Surg Floor or ICU. The 10/20 international system of electrode placement was used and bipolar and referential electrode montages were recorded. In addition to EEG the patient was monitored for EKG and lateral/vertical eye movements. Activation procedures of photic stimulation and hyperventilation were performed if applicable. Video was used during activation procedures and during events where applicable. The duration of the recording was 30 minutes. DESCRIPTION OF EEG: The patient was noted to be awake and drowsy during the recording. During maximal wakefulness a 9-Hz posterior background rhythm was present which was well-modulated, symmetrical, reactive to eye opening, and of moderate voltage. With eye opening the background activity changed to a low voltage mixture of alpha, beta, and occasional theta range frequencies. Faster frequencies were present in the bilateral anterior head regions. There was a normal anterior- posterior voltage gradient. During drowsiness, there was attenuation of the posterior dominant background rhythm and vertex waves. No stage II sleep was recorded. There was occasional, left hemisphere, moderate-amplitude, non-rhythmic slowing. Activating Procedures: Photic stimulation was performed which produced a symmetrical posterior driving response at various flash frequencies. Hyperventilation was performed with moderate effort and produced no physiological slowing of the background. EKG: EKG revealed normal sinus rhythm. INTERPRETATION: This EEG is abnormal due to intermittent, focal, non-rhythmic left hemisphere slowing. PRIOR EEG: none CLINICAL CORRELATION: The finding above is consistent with an area of focal cerebral dysfunction and correlates with patient's brain MRI. No definitive epileptiform activity was present. Clinical correlation is advised. Yadi Mcmillan MD Date of service: 06/01/23 Time of Service: 17:03 Coding CPT Codes EEG AWAKE AND DROWSY - [id number] ([id number])
[2023-06-01] MEDS: MAGNESIUM SULFATE 1 GM/100 ML BAG IVPB (17:56)
[2023-06-01] MEDS: levETIRAcetam 250 MG TAB 500 MG PO (20:19)
[2023-06-01] MEDS: Amitriptyline 25 MG TAB 125 MG PO (21:42)
--- NOTE | 2023-06-01 21:58 | PGE_ITS ---
Date of Service Date of service: 06/01/23 Time of Service: 21:59 Assessment and Plan Assessment and plan (1) Brain lesion: Status: Acute Assessment and plan: Recurrence of brain lesion after 4 years of remission. Will need [facility] neurosurgery and oncology follow up. Will discuss with [facility] oncology in am. Obtain Ct chest/abdomen/pelvis for restaging. (2) Brain edema: Status: Acute Assessment and plan: Continue dexamethasone. (3) Encephalopathy acute: Status: Acute Assessment and plan: Continue keppra empirically. Continue dexamethasone. This has much improved. (4) Hypomagnesemia: Status: Acute Assessment and plan: Replete, recheck in am (5) DVT prophylaxis: Status: Acute Assessment and plan: SCDs. Avoid chemical DVT ppx due to recurrence of the brain lesion which has not yet been irradiated. (6) Discharge planning issues: Status: Acute Assessment and plan: DNR/DNI Will need follow up with [facility] neurosurgery as well as with [facility] oncology, who will be contacted in am. Anticipate discharge home tomorrow (less likely transfer to [facility] - only if medical oncology feels it is necessary). Subjective Subjective Interval history since last seen: Mr Gonzalez feels better. His feels that he is almost back to normal, but notices that he seems to be forgetful about conversations he had an hour ago and returns to that conversation. His word choice and balance are better. Mr Gonzalez states that he feels fullness/pressure on the L side of his head. He denies dizziness, CP, SOB, nausea. I discussed the case with Dr Mcmillan and with [facility] neurosurgery. The patient likely has a recurrence of his brain lesion with worsening cerebral edema. The recommendations are to continue keppra (can decrease to 500 mg PO BID), decadron 4 mg PO BID, obtain a CT chest/abdomen/pelvis in am and talk to his medical oncologist prior to his discharge. The patient does not need to transferred to [facility] from the neurosurgical stand point. Exam Narrative Exam Narrative: General: A very pleasant male who appears to be in great spirits, A&Ox3, eating dinner at the time of exam; appropriate word choice; I do not appreciate forgetfullness when talking with me HEENT: EOMI, MMM Heart: RRR, no m/r/g Lungs: CTAB Abdomen: soft, nontender, nondistended Extremities: no edema BLEs Objective Last Vital Signs Temp 36.9 C 06/01/23 20:17 Pulse 78 06/01/23 20:17 Resp 16 06/01/23 20:17 BP 122/74 06/01/23 21:46 Pulse Ox 93 06/01/23 20:17 Laboratory Results - last 24 hr 05/31/23 05/31/23 06/01/23 23:52 23:55 13:30 Sodium 134 L Potassium 4.1 Chloride 99 Carbon Dioxide 24.5 Anion Gap 10.5 BUN 13 Creatinine 1.2 Est GFR (CKD-EPI 2020) 62.67 Glucose 154 H Calcium 9.5 Magnesium 1.7 L Troponin I < 50 Urine Color Yellow Urine Clarity Clear Urine pH 8.0 Ur Specific [place] 1.015 Urine Protein Negative Urine Ketones Negative Urine Blood Trace-intact H Urine Nitrite Negative Urine Bilirubin Negative Urine Urobilinogen 0.2 Ur Leukocyte Esterase Negative Urine RBC 0-2 Urine WBC Negative Ur Epithelial Cells Negative Urine Crystals Negative Urine Bacteria Rare Urine Mucus Negative Ur Culture Indicated? No Urine Glucose Negative Objective Narrative Objective Narrative: MRI brain w/w/o contrast: New area of masslike enhancement in the posterior superior left parietal lobe in area of previous surgery, consistent with recurrence. Significant associated white matter edema in the left parietal lobe. No other sites of mass or abnormal enhancement. EEG: The finding above is consistent with an area of focal cerebral dysfunction and correlates with patient's brain MRI. No definitive epileptiform activity was present. Clinical correlation is advised. Time Spent with Patient Time Spent with Patient: 35-49 minutes Time was spent: preparing to see the patient(eg.review tests), obtaining and/or reviewing separately otained hiistory, ordering medications,tests, procedures, referring, communicating with other health manager of care, indepentently interpreting results, counseling the patient and care coordination
[2023-06-02 01:45] VITALS: BP 132/65; PULSE 47; RESP 18; TEMP 36; O2SAT 94
[2023-06-02] MEDS: ACETAMINOPHEN 1,000 MG/100 ML BTL 400 MG IVPB (01:48)
[2023-06-02 05:34] VITALS: BP 105/49; PULSE 83; RESP 18; TEMP 35.4; O2SAT 92
[2023-06-02 07:54] VITALS: BP 105/68; PULSE 82; RESP 17; TEMP 36.2; O2SAT 92
[2023-06-02 07:54] LABS: Abs Immature Grans 0.11 10^3/uL (0.0-0.06); Absolute Basophil Count 0.02 10^3/uL (0.0-0.2); Absolute Lymphocyte Count 1.58 10^3/uL (1.2-3.4); Absolute Monocyte Count 0.96 10^3/uL (0.1-0.8); Absolute Neutrophil Count 13.83 10^3/uL (1.2-6.7); Basophils % 0.1; HCT 38.9 % (40.0-50.0); HGB 12.8 g/dL (13.5-17.5); Immature Grans % 0.7; Lymphocytes % 9.6; MCH 26.2 pg (27.0-33.0); MCHC 32.9 % (32.0-36.0); MCV 80 fL (80-95); MPV 11.5 fL (8.0-11.0); Monocytes % 5.8; Neutrophils % 83.8; Platelet Count 208 10^3/uL (130-400); RBC 4.89 10^6/uL (4.36-5.78); RDW 14.1 % (11.8-14.1)
[2023-06-02 08:28] LABS: Anion Gap 7.8 mmol/L (3-11); BUN 20 mg/dL (7-18); CO2 25.2 mmol/L (21.0-32.0); CREATININE 1.3 mg/dL (0.70-1.30); Calcium 9.3 mg/dL (8.5-10.1); Calculated LDL 84 mg/dL (<100); Chloride 102 mmol/L (98-107); Cholesterol 163 mg/dL (<200); Estimated GFR 56.93 (mL/min/1.73m2); Glucose 133 mg/dL (74-106); HDL Cholesterol 50 mg/dL (40-60); Magnesium 2.2 mg/dL (1.8-2.4); Potassium 4.3 mmol/L (3.5-5.1); Sodium 135 mmol/L (136-145); TSH 0.39 uIU/mL (0.36-3.74); Triglyceride 147 mg/dL (<150)
[2023-06-02] MEDS: Dexamethasone 4 MG TAB PO (08:44)
[2023-06-02] MEDS: Acetaminophen 325 MG TAB 650 MG PO (08:44)
[2023-06-02] MEDS: Sennosides/Docusate Sodium TAB 1 TAB PO (08:44)
[2023-06-02] MEDS: levETIRAcetam 500 MG TAB PO (08:44)
[2023-06-02] MEDS: Hydroxychloroquine 200 MG TAB 100 MG PO (08:44)
[2023-06-02] MEDS: Normal Saline Flush 10 ML SYR IVP (08:45)
[2023-06-02 08:49] LABS: Hemoglobin A1C 5.8 % (<5.7)
--- NOTE | 2023-06-02 10:23 | PT.INIE ---
PT Notes Visit Reasons: altered mental status Physical Therapy Inpatient Initial Evaluation Date: 06/02/2023 Referring Doctor: Nancy Thomas MD PT Orders: PT CONSULT: Limited ability Precautions: Fall. Standard. Activity as tolerated. Patient Profile/Admitting Diagnosis: Patient is a 78-year-old male patient with primary malignanne neoplasm of R upper lobe of lung with brain metatstasis S/P craniectomy and immunotherapy in 2019 admitted on 05/31/2023 due to headache, speech alteration, and confusion. Patient is admitted for management of brain lesion, brain edema, acute encephalopathy, hypomagnesemia. 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 Another flight of steps with rails lead to the second floor of the house where the bedroom is. Independent with all aspects of ADL prior to admisison. 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 Celestine gonzáles. Equipment Owned/DME: [facility], Subjective: Reports pressure in his head at rest and with movement. Denies chest pain and lightheadedness throughout session. Indicates that he is at mobility baseline as of this time of evalaution. Per Gissel who arrived at the tail end of PT session, patientappeas to have respondned well to the stroids that was started for this admission. Objective: General Observation: Resting at edge of bed. Mental Status: Alert and oriented as to person, place, time, and purpose. Able to pay attention, focus, and respond appropriately. Pain: Denies Vital Signs: Closley monitored by nursing staff ROM: Right Upper Extremity: Shoulder Flexion WFL. Shoulder abduction WFL. Elbow flexion WFL. Wrist flexion WFL. Functional opening and closing of hand WFL. Left Upper Extremity: Shoulder Flexion WFL. Shoulder abduction WFL. Elbow flexion WFL. Wrist flexion WFL. Functional opening and closing of hand WFL. Right Lower Extremity: Hip flexion WFL. Hip abduction WFL. Knee flexion WFL. Ankle dorsiflexion WFL. Ankle plantarflexion WFL. Left Lower Extremity: Hip flexion WFL. Hip abduction WFL. Knee flexion WFL. Ankle dorsiflexion WFL. Ankle plantarflexion WFL. Strength: Right Upper Extremity: Shoulder flexors 4-/5. Shoulder abductors 4-/5. Elbow flexors 5/5. Elbow extensors 5/5. Patient Registrar strong. Left Upper Extremity: Shoulder flexors 4-/5. Shoulder abductors 4-/5. Elbow flexors 5/5. Elbow extensors 5/5. Patient Registrar strong. Right Lower Extremity: Hip flexors 4-/5. Hip abductors 4-/5. Knee flexors 5/5. Knee extensors 4/5. Ankle dorsiflexors 4-/5. Ankle plantarflexors 4-/5. Left Lower Extremity: Hip flexors 4-/5. Hip abductors 4-/5. Knee flexors 5/5. Knee extensors 4/5. Ankle dorsiflexors 4-/5. Ankle plantarflexors 4-/5. Bed Mobility/Transfers: Rolling independent Supine to sit independent Sit to supine independent Sit to stand independent Stand to sit independent Bed to bedside commode independent Bedside commode to bed independent Bed to reclining chair independent Reclining chair to bed independent Gait: 300 feet +100 feet using assistive device on level surfaces. Reported no increase in pressure in his head during activity. Mildly fatigued. Mild shortness of breath that resolved with rest. No loss of balance. Supervision assist only. Stairs: Up-and-down 6 x 4 inch steps and 4 x 6 inch steps while holding onto bilateral rails. Step over step pattern requiring only supervision. Reported no increase in pressure in his head during activity Balance: Static Sitting: Normal Dynamic Sitting: Normal Static Standing: Fair Dynamic Standing: Fair Special Tests: Mobility Limitations Standardized Measure [facility] AM-PAC 6 clicks Basic Mobility Inpatient Short Form: Raw Score: 24 CMS Score: 0% deficit Romberg Test: Minimal side to side sway that did not cause LOB 30-second chair rise: 12x 4-Stage Balance Test: Able to maintain 10 seconds with feet together and with semitandem with left foot bleeding but was unable to do so with semitandem with the right foot leading, full tandem, and 1 legged stance indicating high risk for falls. Informed Consent/Education: Patient was instructed in purpose of PT consult and plan of care. Agreeable to proceed with established PT POC to achieve personal goals. ASSESSMENT: Impaired balance reaction with vision occluded and with base of support narrowed. Will benefit from outpatient intermediate to advanced level balance exercises to reduce fall risk and maintain independent community ambulation. Improved functional mobility performance with medical management for this admission. Patient presents with clinical signs and symptoms consistent with current/admitting diagnoses that have resulted to mobility limitations, gait instability, generalized weakness, and overall ADL decline as demonstrated by the following impairment level findings: 1. Impaired sitting/standing balance 2. Impaired activity tolerance Impairments are contributing to the following functional limitations: 1. Increased completion time for mobility ADL performance 2. Increased risk for falls Patient is assessed as a 59232 Low complexity based on the following: History: 78-year-old male with past medical history as indicated above Examination: Demonstrable impairment in strength, balance, and mobility level with underlying impairments and functional limitations as exhibited above as well as deficit score of 0% utilizing the [facility] Mobility Inpatient Short Form Presentation: Stable Decision Makin low complexity Goals: Goals X1 weekpnea 1. Independent with home exercise program 20. Good static and dynamic standing balance/tolerance Plan of Care/Treatment Plan: 1-2x/day, 7 days/week x 1 week. Plan of care has been reviewed with the [facility] providing the service under Physical Therapy direction. One more session before discharge for goals above. DISCHARGE RECOMMENDATIONS: [] Home with no services [] [] Home with services [specify] [X] Home with outpatient PT. Home when medically cleared by hospitalist. Patient will benefit from outpatient PT services for intermediate to advanced several balance exercises to maintain ability for community ambulation. [] SNF for continued rehabilitation [] [] Intermediate Care [] [] SNF versus LTC based on ability to participate and progress [] TREATMENT CODE/TIME: 42072 x 27 minutes for 1 unit beginning at 9:48 AM. Thank you for the opportunity to participate in the care of this patient. Nicole Olmos PT, DPT, CLT [facility] [place], [place]
[2023-06-02] MEDS: Omnipaque 350 MG/ML 100 ML BTL IJ (10:36)
[2023-06-02] MEDS: Normal Saline - Diluent 50 ML VIAL IJ (10:36)
--- NOTE | 2023-06-02 10:45 | DI.CT_ITS ---
Exam(s) CT CHEST/ABD/PEL W EXAM: CT CHEST/ABD/PEL W CLINICAL HISTORY: restaging lung cancer TECHNIQUE: Imaging Protocol: Axial computed tomography images with coronal and sagittal reformatted images were created and reviewed CONTRAST MATERIAL: Intravenous: Omnipaque 350 contrast volume:100 mL Oral: Yes COMPARISON: CT CT CHEST PE CTA from 04/01/[address] CHEST W CONTRAST from 08/15/2019 CR XR DEXA BONE DENSITY W/WO ANNABEL from 07/31/[address] BRAIN NECK CTA from 05/31/2023 FINDINGS: The examination is limited due to patient motion artifact. CHEST: Tracheobronchial tree: Patent where visualized. Pulmonary parenchyma: Centrilobular emphysematous changes are present. There has been interval decre ase in size in the right upper lobe mass which currently measures 2.1 transverse by 2.2 AP by 2.8 crater and packer niocaudad cm. This compares to 2.2 x 3.1 x 3.8 cm on the prior examination dated 08/15/2019. No other pulmonary nodules are seen. No focal consolidating infiltrates are present. Bilateral dependent at electasis is seen. Visualized thyroid gland: Unremarkable. Mediastinum and Roberta: No dominant adenopathy or fluid collection. The esophagus is unremarkable. Pleura: Tiny bilateral pleural effusions are seen. No pneumothorax. Heart: The heart is not dilated. Coronary artery calcification is present. No pericardial effusion. Pulmonary arteries: No pulmonary emboli are identified. Aorta: Thoracic aorta non-dilated. No evidence of dissection. Mild atherosclerosis. Lymph nodes: Within normal limits. Tubes, Catheters, and Lines: None. Soft tissues: Bilateral gynecomastia. Bones:Within normal limits for the patient's age. No aggressive osseous lesions are present. ABDOMEN: Liver: There is diffuse decreased attenuation of the liver. There is a stable tiny hypodensity in th e periphery of the right lobe of the liver. This may represent a small spur cyst. It is too small f or further characterization. No suspicious hepatic masses are seen. Portal, Superior Mesenteric, and Splenic Veins: Unremarkable. Gallbladder and Biliary Tract: The gallbladder is contracted but otherwise unremarkable. No signific ant biliary ductal dilatation is present. Pancreas: Normal density, no abnormal calcifications or inflammatory process. Spleen: Normal. Adrenals: Stable left adrenal nodule. No right adrenal nodule. Kidneys: Normal size, contour and axis. No radiodense stones or obstructive uropathy. Small simple ri ght renal cyst. No follow-up is recommended. Abdominal Aorta: Abdominal portion non-dilated. Atherosclerosis. Bowel: There is diverticulosis of the colon without evidence of acute diverticulitis. There is a mod erate amount of stool throughout the colon. There is no bowel wall thickening or evidence of obstruc tion. Appendix is unremarkable. Peritoneal Cavity: There is a trace amount of free fluid in the deep pelvis. No free air. Lymph Nodes: Within normal limits. Bones: Within normal limits for the patient's age. There is a well-circumscribed intramedullary luce ncy in the superior left pubic ramus. There is no periosteal reaction or cortical disruption. This may represent a benign lesion such as a cyst or possible bone infarct. No aggressive osseous lesion is identified. Soft Tissues: There is a fat containing left inguinal hernia. There is a small fat containing umbili nathalie hernia. PELVIS: Bladder: Symmetric distention, no gross wall thickening. There are 2 tiny calcifications (less than 2 mm) in the dependent portion of the urinary bladder on the right. One lies adjacent to the right UV J. No hydronephrosis is seen. Reproductive Organs: Unremarkable as visualized. Lymph Nodes: Within normal limits. Bones: Within normal limits. IMPRESSION: 1. Interval decrease in size of the right upper lobe mass. 2. Dependent atelectatic changes in the lung bases and small bilateral pleural effusions. 3. No evidence of abdominal or pelvic metastatic disease. 4. Well-circumscribed intramedullary lucency in the superior left pubic ramus. There is no periostea l reaction or cortical disruption. This may represent a benign lesion such as a cyst or possible bon e infarct. A bone scan should be considered for further evaluation. 5. Incidental findings in the abdomen and pelvis as described above. RADIATION DOSE DELIVERED: 1,680.99mGy.cm Total DLP DATA REPOSITORY: All CT scans at this facility are submitted to the National Radiology Data Registry (NRDR) Dose Index Registry (DIR) with the [employer] (A[employer]). RADIATION OPTIMIZATION: All CT scans at this facility use at least one of these dose optimization te chniques: automated exposure control; mA and/or kV adjustment per patient size (includes targeted exa ms where dose is matched to clinical indication); or iterative reconstruction.
--- NOTE | 2023-06-02 12:38 | W.PM.DS.N ---
Date of service: 06/02/23 Time of Service: 12:39 DS: Diagnosis Discharge Diagnosis (1) Brain lesion: Status: Acute (2) Brain edema: Status: Acute (3) Encephalopathy acute: Status: Acute (4) Hypomagnesemia: Status: Acute (5) Hyponatremia: Status: Acute Discharge Plan Disposition Patient Disposition: Home Condition: Stable Discharge Details Reason For Visit: altered mental status Admit Date/Time: 05/31/23 22:29 Admit Provider: David Aguila Attending Provider: David Aguila Primary Care Provider: Arline Chauhan [facility] Course Hospital Course: Mr Gonzalez is a 78 year old male with PMHx of 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 CT/CTA of the head did not show acute CVA or major artery occlusion, but did reveal an area of abnormal enhancement in the posterior left high parietal lobe with surrounding white matter edema concerning for recurrent metastatic lesion. Neurosurgery was consulted and recommended that the patient be started on keppra, dexamethasone, and that an MRI be obtained in the morning. The patient's neurological deficits improved rapidly with above interventions. His aphasia resolved completely, and his walking has improved to the point of not requiring assistive devices while ambulating with physical therapy. His MRI of the brain confirmed an area of masslike enhancement in the posterior superior left parietal lobe with an associated area of white matter edema, consistent with recurrence. The case as well as the MRI images were discussed with neurosurgery, who will be arranging outpatient follow up for the patient, recommended that we contact [facility] oncology with the latest imaging findings, and obtain a CT chest/abdomen/pelvis for staging, all of which was done. The patient does have a intramedullary lucency in the superior left pubic ramus which may be benign or a possible bone infarct and will need further follow up. The RUL mass has decreased in size. He is being discharged home today with prescriptions for dexamethasone 4 mg PO BID and keppra 500 mg PO BID, per neurosurgery recommendations. He is also being prescribed a limited supply (10 tabs) of oxycodone 5 mg PO q6hrs prn for the headache. He is medically ready for discharge and agreeable to discharge. He should follow up with medical oncology, radiation oncology, and neurosurgery at [facility]. Care for patient as well as completion of his discharge summary on the day of discharge took 45 minutes. Home Meds and New Rx's Prescriptions: New levetiracetam 500 mg Tablet 500 mg PO BID Qty: 60 0RF dexamethasone 4 mg Tablet 4 mg PO BID Qty: 60 0RF nicotine 21 mg/24 hr Patch 24 Hour 21 mg transdermal DAILY Qty: 30 0RF oxycodone 5 mg capsule 5 mg PO Q6H MDD 20 mg PRNQty: 10 0RF Continued acetaminophen 500 mg tablet 1,000 mg PO Q6H PRN sennosides-docusate sodium [Senna with Docusate Sodium] 8.6-50 mg tablet 1 tab-cap PO DAILY hydroxychloroquine 100 mg tablet 100 mg PO BID Shingrix (PF) 50 mcg/0.5 mL suspension for reconstitution 0.5 ml IM ONCE Qty: 1 1RF Rx Instructions: as a single dose. Repeat in 2 months mupirocin 2 % ointment 1 applic topical BID Qty: 30 0RF amitriptyline 100 mg tablet 125 mg PO QHS Qty: 120 4RF clonidine HCl 0.1 mg tablet 0.05 mg PO Q6H Qty: 180 5RF methadone 5 mg tablet 5 mg PO DAILY MDD 5 Qty: 30 0RF Rx Instructions: chronic pain; Discharge Instructions Instructions: Dexamethasone (By mouth), Levetiracetam (By mouth), How to Stop Smoking (DC), Brain Tumors (DC) Additional Instructions: Return to the hospital with any fever, bleeding, chest pain, or shortness of breath. Follow up with [facility] oncology, radiation oncology, and neurosurgery. Follow up with your PCP in 1-2 weeks. Stand Alone Forms: Nursing Discharge Form Referrals: HEMATOLOGY/ONC,[facility] [OTHER] - NEUROSURGERY,[facility] [OTHER] - Arline Chauhan [place], [place] [Primary Care Provider] - 06/09/23 9:00 am Activity:: Activity as Tolerated Equipment/Supplies:: No Equipment Needed Diet:: As Tolerated Discharge Orders Discharge Orders: Discharge Order (Routine); Ordered 06/02/23 Ordered By: Nancy Thomas DS: Summary Time Spent with Patient providing and/or coordinating discharge services: Greater than 30 minutes Status at Discharge Functional status at discharge: independent ambulation Overall status at discharge: patient is back to baseline Mental Status: mental status grossly normal Speech and Movement: speech and movement normal Mood: congruent mood Affect: normal affect Quality:SDOH Health Related Social Needs: No Data to Display Exam Narrative Exam Narrative: General: A very pleasant male who looks even better than yesterday, A&Ox3, no aphasia/dysarthria - eloquent word choice, in fact. Ambulating without assisstive devices - appears steady on his feet, 5/5 strength throughout. HEENT: EOMI, MMM Heart: RRR, no m/r/g Lungs: CTAB Abdomen: soft, nontender, nondistended Extremities: no edema BLEs Psych Mental Status: mental status grossly normal Speech and Movement: speech and movement normal Mood: congruent mood Affect: normal affect DS: Data Vitals/I&O Vitals and I&O: Vital Signs Temperature 36.2 C L 06/02/23 07:54 Temperature Source Tympanic 06/02/23 07:54 Pulse 82 06/02/23 07:54 Pulse Rhythm Irregular 06/02/23 11:28 Pulse 82 06/01/23 00:31 Respiratory Rate 17 06/02/23 07:54 Respiratory Effort Normal, Non-Labored 06/02/23 11:28 Respiratory Depth Normal 06/02/23 11:28 Respiratory Pattern Normal 06/02/23 11:28 Blood Pressure 105/68 06/02/23 07:54 Blood Pressure Mean 79 06/01/23 00:31 Pulse Oximetry 92 06/02/23 07:54 Oxygen Delivery Method Room Air 06/02/23 07:54 Oxygen Flow Rate 0 06/02/23 07:54 Pain Level 1 06/02/23 08:44 Intake & Output 06/01/23 06/02/23 06/02/23 23:59 11:59 23:59 Intake Total 100 / 1170 600 / 600 Balance 100 / 1170 600 / 600 Intake: IV 100 / 520 100 / 100 Oral 500 / 500 Other: Urine Color Yellow Yellow Urine Appearance Clear Comment Can independently use the bathroom. Voiding Methods Toilet Toilet Data Completed and Pending Completed studies during hospitalization [Text1]: CT head 05/31/23: No acute intracranial process. A left parietal craniotomy and left parietal encephalomalacia, stable. CTA head/neck 05/31/23: 1. CTA brain: Normal CTA examination of the [place]. 2. Head CT: Abnormal area of enhancement in the posterior left high parietal lobe with significant surrounding white matter edema suspicious for recurrence of metastatic lesion. 3. CTA neck: Mild calcific plaque at the common carotid bulbs. No stenosis. Spiculated mass right upper lobe, slightly smaller than prior. MRI brain w/w/o contrast 06/01/23: New area of masslike enhancement in the posterior superior left parietal lobe in area of previous surgery, consistent with recurrence. Significant associated white matter edema in the left parietal lobe. No other sites of mass or abnormal enhancement. CT chest/abdomen/pelvis 06/02/23: 1. Interval decrease in size of the right upper lobe mass. 2. Dependent atelectatic changes in the lung bases and small bilateral pleural effusions. 3. No evidence of abdominal or pelvic metastatic disease. 4. Well-circumscribed intramedullary lucency in the superior left pubic ramus. There is no periosteal reaction or cortical disruption. This may represent a benign lesion such as a cyst or possible bone infarct. A bone scan should be considered for further evaluation. 5. Incidental findings in the abdomen and pelvis as described above. Labs on day of discharge: Labs from last 24 hours 06/02/23 06/01/23 07:10 13:30 WBC 16.50 H RBC 4.89 Hgb 12.8 L Hct 38.9 L MCV 80 MCH 26.2 L MCHC 32.9 RDW 14.1 Plt Count 208 MPV 11.5 H Immature Gran % 0.7 Neutrophils % 83.8 Lymphocytes % 9.6 Monocytes % 5.8 Eosinophils % 0.0 Basophils % 0.1 Nucleated RBC % 0.0 Absolute Neutrophils 13.83 H Absolute Lymphocytes 1.58 Absolute Monocytes 0.96 H Absolute Eosinophils 0.00 Absolute Basophils 0.02 Sodium 135 L 134 L Potassium 4.3 4.1 Chloride 102 99 Carbon Dioxide 25.2 24.5 Anion Gap 7.8 10.5 BUN 20 H 13 Creatinine 1.3 1.2 Est GFR (CKD-EPI 2020) 56.93 62.67 Glucose 133 H 154 H Hemoglobin A1c 5.8 H Calcium 9.3 9.5 Magnesium 2.2 1.7 L Triglycerides 147 Total Cholesterol 163 LDL Cholesterol, Calc 84 HDL Cholesterol 50 TSH 0.39 PFSH All Active Problems (Updated 06/02/23 @ 12:40 by Nancy Thomas MD) Hyponatremia (Acute) Discharge planning issues (Acute) DVT prophylaxis (Acute) Encephalopathy acute (Acute) Brain lesion (Acute) Confusion (Acute) Hypomagnesemia (Acute) Altered mental status (Acute) Headache (Acute) Brain edema (Acute) Lesion of nose (Acute) Anemia (Chronic) Chronic pain syndrome (Chronic) Addiction (Acute) Balance disorder (Acute) Insomnia (Acute) Peripheral neuropathy (Acute) Lung cancer (Chronic) Stage 4; r upper lobe Hypertension (Chronic) Brain tumor (Acute) s/p surgery; on antiseizure meds, from lung ca Vasogenic edema (Acute) Medical History Alcoholism Cellulitis Pneumothorax on right Surgical History 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 Brother Substance abuse Grandfather Heart disease Stroke Grandmother Heart disease heart failure Social History Smoking/Tobacco Use Status: Former Tobacco Use Quit Date: 03/20/19 Tobacco: How many years used: 50 Smokeless tobacco user: other Smoking risk assessment performed?: Yes Alcohol Intake: former Drug use: Never Substance use type: does not use Household members: spouse Housing: house Communication Needs: None Do you need help understanding health information?: Rarely Pets and animals: Yes Pets and animals: cat(s) Sexually active: No Do you think of yourself as: straight/heterosexual Current gender identity: male What is your relationship status?: How often do you talk on the phone with friends or family?: once per week How often do you get together with friends or relatives?: once per week How often do you attend faith or christianity services?: decline to answer Do you belong to any clubs or organized social groups?: no Panel score (0-1 are the most socially isolated patients): 1 What type of physical activity do you participate in: none Karen/Mormonism: None Special karen needs: No Seatbelt use: always Drive intox or ride w/intox stage driver: No Do you feel safe at home: Yes Do you feel safe in your relationship?: Yes Time Spent with Patient Time Spent with Patient: 45-69 minutes Time was spent: preparing to see the patient(eg.review tests), obtaining and/or reviewing separately otained hiistory, ordering medications,tests, procedures, referring, communicating with other health career technology teacher, indepentently interpreting results, counseling the patient and care coordination
--- NOTE | 2023-06-02 14:03 | PDOC.CMDIS ---
Date of service: 06/02/23 Time of Service: 14:03 LACE Index Scoring Tool Questions: Length of Stay (in days): 2 Was the patient admitted via the E.D.?: Yes Care Management Discharge Plan Reason for Hospitalization: AMS Discharge Plan: Martinez will return home and follow up with outpatient providers, including PCP. He will transport via private vehicle with his . Patient/Family Education Needs: Review discharge instructions, discuss Ask Me Three. SDOH Health Related Social Needs: No Data to Display
== END 2023-06-02 14:12 | disposition home or self-care (01) ==
LOC: ER 06-01 00:10 → MS 06-01 01:02
PROVIDERS: Internal Medicine; Admitting Provider General Practice; Emergency Provider Student in an Organized Health Care Education/Training Program; PCP Family Medicine; Visit Provider General Practice
DX: G93.40 Encephalopathy, unspecified (principal); G93.6 Cerebral edema; G89.4 Chronic pain syndrome; E87.1 Hypo-osmolality and hyponatremia; E83.42 Hypomagnesemia; C34.11 Malignant neoplasm of upper lobe, right bronchus or lung; C79.31 Secondary malignant neoplasm of brain; R51.9 Headache, unspecified; R11.0 Nausea; D64.9 Anemia, unspecified; G47.00 Insomnia, unspecified; G62.9 Polyneuropathy, unspecified; I10 Essential (primary) hypertension; Z87.891 Personal history of nicotine dependence
CPT/HCPCS: 00123; 36415; 70496; 70498; 70553; 74177; 80048; 80053; 80061; 92610; 93005; 95816; 97161; 70450; 71260; 81003; 81015; 83036; 83735; 84443; 84484; 85025; 93010; 99222; 99233; 99239; G0378; J0131; J1100; J1953; J2405; J3475; J3490; J8540

== ENCOUNTER → 2023-06-01 09:00 | Outpatient (BNVA) | payer MEDICARE, SELFPAY | PROVIDERS: PCP Family Medicine; Referring Provider Family Medicine; Visit Provider Psychiatry & Neurology Neurology ==

== ENCOUNTER → 2023-09-08 04:36 | Outpatient (CLI) | payer MEDICARE, SELFPAY ==
--- NOTE | 2023-09-08 | DI.MRI_ITS ---
Exam(s) MR BRAIN WO/W EXAM: MR BRAIN WO/W CLINICAL HISTORY: BRAIN TUMOR D49.6 FU PARIETAL BRAIN MET VS RADIATION NECROSIS. TECHNIQUE: Multiplanar multisequence MRI of the brain was performed. CONTRAST MATERIAL: IV Contrast: 17 ML of Dotarem contrast administered. COMPARISON: CT CT HEAD - STROKE PROTOCOL from 05/31/[address] BRAIN NECK CTA from 05/31/2023 MR MR BRAIN WO/W from 06/01/2023 FINDINGS: VENTRICLES AND EXTRA AXIAL SPACES: Normal in size and morphology for the patient's age. HEMORRHAGE: None. CEREBRAL PARENCHYMA: No focus of restricted diffusion to suggest acute infarct. Significant white mat ter edema in the left parietal lobe, without detectable changed from prior. Peripheral enhancement i n this area is also unchanged. No new lesions identified. Other small foci of high signal in the wh ite matter consistent microvascular changes. MIDLINE SHIFT: None. BRAINSTEM/CEREBELLUM: Normal. CALVARIUM: High left parietal craniotomy. VISUALIZED PARANASAL SINUSES/MASTOIDS: Mucosal thickening of the right maxillary sinus.. Orbits: Unremarkable. Pituitary: Normal. Vasculature: Normal flow voids. IMPRESSION: Stable appearance of left parietal white matter edema with posterior peripheral cortical enhancement. No new findings. DATA REPOSITORY:
[2023-09-08] MEDS: Gadoterate meglumine 20 ML SYRINGE 17 ML IVP (12:40)
[2023-09-08] MEDS: Normal Saline Flush 10 ML SYR IVP (12:40)
== END ==
PROVIDERS: PCP Family Medicine; Visit Provider Neurological Surgery
DX: D49.6 Neoplasm of unspecified behavior of brain (principal)
CPT/HCPCS: 70553

== ENCOUNTER 2024-03-02 02:23 | Outpatient (CLI) | payer MEDICARE, SELFPAY ==
--- NOTE | 2024-03-02 | DI.MRI_ITS ---
Exam(s) MR BRAIN WO/W EXAM: MR BRAIN WO/W CLINICAL HISTORY: BRAIN TUMOR D49.6 FU LEFT PARIETAL BRAIN MET TECHNIQUE: Multiplanar multisequence MRI of the brain was performed. Both noninfused and contrast i nfused sequences were performed. IV Contrast injected was 15 cc Dotarem. COMPARISON: CT CT BRAIN NECK CTA from 05/31/2023 MR MR BRAIN WO/W from 06/01/2023 MR MR BRAIN WO/W from 09/08/2023 FINDINGS: CEREBRAL PARENCHYMA: Left parietal craniotomy again noted. In the posterior left parietal region subjacent to the craniotomy site there is an enhancing lesion m easuring 2.6 cm wide by 2.2 cm AP by 3 cm craniocaudal.. This enhancing lesion has slightly increase d in size when compared to most recent MRI scan of 09/08/2023. The amount of surrounding brain edema has also further increased.. No shift of midline structures. No new areas of restricted diffusion. DWI: No areas of restricted diffusion to suggest acute ischemic event. SWI: Susceptibility artifact in this region is noted on SWI. In addition, there is a new round susce ptibility artifact measuring 5 x 5 mm at this level consistent with recent punctate hemorrhage. PITUITARY GLAND: No mass nor parasellar abnormality. No obvious abnormality in the cavernous sinuses. FLOW VOIDS: The expected flow void are noted. No evidence of obvious aneurysm nor obvious vascular ma lformation. PARANASAL SINUSES: There is mucosal thickening as well as a fluid level in the right maxillary sinus, more pronounced than 09/08/2023. Left maxillary sinus is clear as are the other visualized paranasa l sinuses and mastoid air cells ORBITS: No obvious abnormal findings. IMPRESSION: 1. Full slight further size increase in the enhancing lesion in the posterior left parietal region un sure like clear there increase in amount of white matter edema. No shift of midline structures. 2. New focus of signal abnormality at this location on the SWI imaging consistent with recent puncta te hemorrhage. Right maxillary sinusitis. DATA REPOSITORY:
[2024-03-02] MEDS: Gadoterate meglumine 20 ML SYRINGE IVP (12:37)
[2024-03-02] MEDS: Normal Saline Flush 10 ML SYR IJ (12:38)
== END 2024-03-02 02:43 ==
LOC: DI 02:23
PROVIDERS: PCP Family Medicine; Visit Provider Neurological Surgery
DX: D49.6 Neoplasm of unspecified behavior of brain (principal); I61.8 Other nontraumatic intracerebral hemorrhage
CPT/HCPCS: 70553

== ENCOUNTER 2024-03-04 00:29 | Outpatient (CLI) | payer MEDICARE, SELFPAY ==
--- NOTE | 2024-03-04 | DI.CT_ITS ---
Exam(s) CT CHEST W EXAM: CT CHEST W CLINICAL HISTORY: METSTATIC NSCLC, RESTAGING/? RECURRENCE, C34.11, BRAIN TUMOR, D49.6 TECHNIQUE: Imaging Protocol: Axial computed tomography images with coronal and sagittal reformatted images were created and reviewed. Computer aided detection (CAD) was utilized. CONTRAST MATERIAL: Intravenous: Omnipaque 350Contrast volume:70 mL. COMPARISON: CT CT CHEST/ABD/PEL W from 06/02/2023 FINDINGS: Tracheobronchial tree: Patent where visualized. No bronchiectasis. Pulmonary parenchyma: Mild centrilobular emphysematous changes are present. There has been no signif icant change in the right upper lobe mass since the prior examination from 06/02/2023. There are no o ther pulmonary nodules present. No focal consolidating infiltrates are seen. Mediastinum and Roberta: No dominant adenopathy or fluid collection. The esophagus is unremarkable. Thyroid gland: There is a 1.6 cm heterogeneous nodule seen in the isthmus of the thyroid gland. None mergent thyroid ultrasound may be obtained for further evaluation. Pleura: No effusion or pneumothorax. Heart: The heart is not dilated. Coronary artery calcification is present. No pericardial effusion. Aorta: Thoracic aorta non-dilated. There is no evidence of dissection. Atherosclerotic at calcificat ion is present. Pulmonary arteries: Due to the timing of the bolus, pulmonary artery opacification is suboptimal. No large central pulmonary embolism is present. Upper abdomen: There is diffuse decreased attenuation of the liver suggesting fatty infiltration. Lymph nodes: Stable appearance of the axillary lymph nodes. Bones: Within normal limits for the patient's age. Soft tissues: There is bilateral gynecomastia. IMPRESSION: 1. Stable size of the right upper lobe pulmonary mass. 2. No acute pulmonary process. RADIATION DOSE DELIVERED: 172.73mGy.cm Total DLP DATA REPOSITORY: All CT scans at this facility are submitted to the National Radiology Data Registry (NRDR) Dose Index Registry (DIR) with the [employer] (A[employer]). RADIATION OPTIMIZATION: All CT scans at this facility use at least one of these dose optimization te chniques: automated exposure control; mA and/or kV adjustment per patient size (includes targeted exa ms where dose is matched to clinical indication); or iterative reconstruction.
[2024-03-04 13:36] LABS: Abs Immature Grans 0.02 10^3/uL (0.0-0.06); Absolute Basophil Count 0.02 10^3/uL (0.0-0.2); Absolute Eosinophil Count 0.13 10^3/uL (0.0-0.7); Absolute Lymphocyte Count 1.62 10^3/uL (1.2-3.4); Absolute Monocyte Count 0.43 10^3/uL (0.1-0.8); Absolute Neutrophil Count 2.67 10^3/uL (1.2-6.7); Basophils % 0.4 %; Eosinophils % 2.7 %; HCT 41.9 % (40.0-50.0); HGB 13.4 g/dL (13.5-17.5); Immature Grans % 0.4 %; Lymphocytes % 33.1 %; MCH 26.3 pg (27.0-33.0); MCV 82 fL (80-95); MPV 11.1 fL (8.0-11.0); Monocytes % 8.8 %; Neutrophils % 54.6 %; Platelet Count 154 10^3/uL (130-400); RDW 14.1 % (11.8-14.1); RDW-SD 42.1 fL; WBC 4.89 10^3/uL (4.4-10.8)
[2024-03-04 13:53] LABS: ALT 24 U/L (16-63); AST 21 U/L (15-37); Albumin 3.7 g/dL (3.4-5.0); Alkaline Phosphatase 93 U/L (46-116); Anion Gap 8.4 mmol/L (3-11); BUN 15 mg/dL (7-18); Bilirubin, Total 0.43 mg/dL (0.2-1.0); CO2 27.6 mmol/L (21.0-32.0); Calcium 9.4 mg/dL (8.5-10.1); Chloride 107 mmol/L (98-107); Estimated GFR 77.52 (mL/min/1.73m2); Glucose 110 mg/dL (74-106); Magnesium 1.8 mg/dL (1.8-2.4); Potassium 3.7 mmol/L (3.5-5.1); Sodium 143 mmol/L (136-145); Total Protein 7.6 g/dL (6.4-8.2)
[2024-03-04] MEDS: Normal Saline - Diluent 50 ML VIAL IJ (14:12)
[2024-03-04] MEDS: Omnipaque 350 MG/ML 100 ML BTL 70 ML IJ (14:13)
== END 2024-03-04 00:49 ==
LOC: DI 00:31
PROVIDERS: PCP Family Medicine; Visit Provider Nurse Practitioner
DX: C34.11 Malignant neoplasm of upper lobe, right bronchus or lung (principal)
CPT/HCPCS: 80053; 71260; 83735; 85025; J3490

== ENCOUNTER 2024-04-28 17:44 | Emergency (ER) | payer MEDICARE, SELFPAY ==
[2024-04-28 17:50] VITALS: BP 142/79; PULSE 102; RESP 16; TEMP 36.1; O2SAT 99
--- NOTE | 2024-04-28 18:00 | DI.RAD_ITS ---
Exam(s) XR FOOT LT COMPLETE EXAM: XR FOOT LT COMPLETE CLINICAL HISTORY: Eval osteomylitis. TECHNIQUE: 2D digital imaging was performed. COMPARISON: No exams were available for comparison FINDINGS: 3 views No evidence of acute fracture or diastasis of the Lisfranc joint. There is generalized osteopenia in the bones of the foot. No osseous lesions nor erosions. No radiopaque foreign bodies. No enthesophytes. No inferior calcaneal spur. No obvious skin ulcers. No vascular calcification. IMPRESSION: Generalized osteopenia but no evidence of fracture nor osteomyelitis. DATA REPOSITORY: RADIATION DOSE DELIVERED:
[2024-04-28 18:08] VITALS: BP 131/49; PULSE 97; RESP 16; O2SAT 98
[2024-04-28 18:33] LABS: HCT 44.5 % (40.0-50.0); HGB 14.5 g/dL (13.5-17.5); MCH 26.9 pg (27.0-33.0); MCHC 32.6 % (32.0-36.0); MCV 82 fL (80-95); RDW 15.7 % (11.8-14.1); RDW-SD 46.8 fL; WBC 20.04 10^3/uL (4.4-10.8)
--- NOTE | 2024-04-28 18:38 | ED.GENADUL_ITS ---
Discharge Plan Disposition Patient Disposition: Home Condition: Stable Discharge Details Clinical Impression: Cellulitis of left foot, Lung cancer, Chronic pain syndrome, Hypertension, Brain tumor Primary Care Provider: Arline Chauhan ED Provider: Yadi Glasgow Home Meds and New Rx's Prescriptions: New cefpodoxime 200 mg tablet 200 mg PO BID 7 Days Qty: 14 0RF Rx Instructions: must administer with a meal/food sulfamethoxazole-trimethoprim [Bactrim DS] 800-160 mg tablet 1 tab PO BID 7 Days Qty: 14 0RF No Action methadone 5 mg tablet 5 mg PO DAILY MDD 5 Qty: 30 0RF Rx Instructions: chronic pain; acetaminophen 500 mg tablet 1,000 mg PO Q6H PRN sennosides-docusate sodium [Senna with Docusate Sodium] 8.6-50 mg tablet 1 tab-cap PO DAILY hydroxychloroquine 100 mg tablet 100 mg PO BID amitriptyline 100 mg tablet 125 mg PO QHS Qty: 120 4RF clonidine HCl 0.1 mg tablet 0.05 mg PO Q6H Qty: 180 5RF dexamethasone 4 mg Tablet 4 mg PO BID Qty: 60 0RF allopurinol 300 mg tablet 300 mg PO ONCE Discharge Instructions Instructions: Cellulitis (Skin Infection), Adult ED Additional Instructions: You were seen in the emergency department today for evaluation of swelling, redness, and warmth of your left foot which was concerning for infection in the skin, known as cellulitis. In our department a full physical examination performed, had a x-ray that did not show signs of osteomyelitis, infection of the bone, and had laboratory studies that were largely reassuring. Your white blood cell count is quite elevated, and this is likely due to a combination of your active infection as well as your recent steroid use. I have started you on 2 medications, cefpodoxime and Bactrim, which you should take for the next 7 days until they are gone, even if you start to feel better. Please continue to elevate your foot, and let your outpatient providers know if your swelling, redness, and pain are not improving over the next few days. They may need to change the antibiotics or extend the course of treatment. Please come back to the emergency department if you spike a fever, have nausea or vomiting that prevents you from taking medications, or have worsening/spreading redness going up your leg. Thank you for allowing us to be part of your care. HPI General Mode of arrival: ambulatory . Date/Time Provider Initiated Documentation: 04/28/24 17:46 . Limitations to Documentation: no limitations . Information obtained by: patient, family and old records reviewed . HPI Narrative: HPI: This is a 79-year-old male patient with a past medical history significant for lung cancer metastatic to the brain, hypertension, anemia, and a long history of tinea pedis presenting for evaluation of foot infection. A few days ago the patient noted increasing swelling and redness in his foot, initially thought that it was a recurrence of gout, but noted the redness to spread up into his ankle. His noted swelling, as well as some shallow ulcerations on the top of his foot as well as the center of his sole. The patient does not have diabetes but has had some poor perfusion issues in his legs. He has not been on any antibiotics recently, denies injury, states that the pain makes it difficult for him to sleep and walk. The patient was seen at urgent care who recommended coming to the emergency department for an osteomyelitis evaluation given the ulcerations. Exam: Gen: Awake and alert, in no apparent distress HEENT: Non-icteric sclera Neck: Supple Lungs: No apparent respiratory distress, normal respiratory effort. CV: Appears well perfused Abdomen: Non-distended MSK: Moves 4 extremities without apparent limitation in ROM Skin: The patient has extensive fungal skin changes to his bilateral feet, left foot has redness, warmth, induration, and swelling/edema to the distal lower leg, with palpable DP pulses symmetrical bilaterally. He does have a shallow ulcer to the very dorsum of his left foot, as well as on the lateral sole. Neuro: No obvious focal deficits or facial asymmetry. Speaks in full, clear sentences. Psych: Appropriate for situation. MDM: This is a 79-year-old male patient presenting for evaluation of a foot infection. Differential includes but is not limited to cellulitis, certainly considered osteomyelitis, the patient has no systemic complaints nor is the onset of symptoms over days to a week concerning for NSTI. The patient's symptoms are less consistent with gout as it traverses numerous joints, and I have lower concern for DVT given the lack of calf tenderness, thromboembolic history, though the patient does have active cancer. The unilateral nature of these complaints makes CHF highly unlikely. We will obtain laboratory studies to include CBC, CMP, ESR, CRP, and will obtain an x-ray to evaluate for osteomyelitis. ED Course: I reviewed the patient's laboratory studies, which reveal a leukocytosis to 20 with left shift, which is likely a combination of infection as well as demargination from his recent steroid use. No anemia or thrombocytopenia. Chemistry panel reveals no electrolyte derangements, evidence of kidney dysfunction, though he does have a mildly low magnesium. No evidence of liver dysfunction. CRP elevated to 7.4, ESR 34. X-ray imaging was reviewed, and does not reveal any sign of osteomyelitis. We had a shared decision-making conversation with the family, and the patient is desiring of discharge home. As he has not had a failure of outpatient treatment, I do think that this is a reasonable course of action, and he has robust outpatient follow-up and will be able to return to care if he has any evidence of worsening or antibiotic failure. I provided him with his first dose of cefpodoxime and Bactrim here in the emergency department, recommended elevation of the foot and he will call his outpatient providers tomorrow to schedule follow-up. At this time, the patient has had a full medical evaluation and is safe for discharge to home. They are hemodynamically stable, ambulatory, and tolerating PO. They are understanding of the follow-up plan and return precautions. They left our facility without incident. Yadi Glasgow MD Related Data Home Medications ?Medication ?Instructions ?Recorded ?Confirmed acetaminophen 500 mg tablet 1,000 mg PO Q6H PRN 04/04/19 04/28/24 sennosides 8.6 mg-docusate sodium 1 tab-cap PO DAILY 09/11/20 04/28/24 50 mg tablet (Senna with Docusate Sodium) hydroxychloroquine 100 mg tablet 100 mg PO BID 09/26/21 04/28/24 dexamethasone 4 mg tablet 4 mg PO BID #60 tabs 06/02/23 04/28/24 amitriptyline 100 mg tablet 125 mg (1.25 x 100 mg) PO QHS #120 08/27/23 04/28/24 tabs clonidine HCl 0.1 mg tablet 0.05 mg (1/2 x 0.1 mg) PO Q6H #180 09/22/23 04/28/24 tabs methadone 5 mg tablet 5 mg PO DAILY #30 tabs 04/18/24 04/28/24 allopurinol 300 mg tablet 300 mg PO ONCE 04/28/24 04/28/24 cefpodoxime 200 mg tablet 200 mg PO BID 1 week #14 tabs 04/28/24 sulfamethoxazole 800 1 tab PO BID 1 week #14 tabs 04/28/24 mg-trimethoprim 160 mg tablet (Bactrim DS) Previous Rx's ?Medication ?Instructions ?Recorded dexamethasone 4 mg tablet 4 mg PO BID #60 tabs 06/02/23 amitriptyline 100 mg tablet 125 mg (1.25 x 100 mg) PO QHS #120 08/27/23 tabs clonidine HCl 0.1 mg tablet 0.05 mg (1/2 x 0.1 mg) PO Q6H #180 09/22/23 tabs methadone 5 mg tablet 5 mg PO DAILY #30 tabs 04/18/24 cefpodoxime 200 mg tablet 200 mg PO BID 1 week #14 tabs 04/28/24 sulfamethoxazole 800 1 tab PO BID 1 week #14 tabs 04/28/24 mg-trimethoprim 160 mg tablet (Bactrim DS) Allergies Allergy/AdvReac Type Severity Reaction Status Date / Time codeine AdvReac unknown Verified 04/28/24 17:58 estazolam AdvReac sleepwalkin Verified 04/28/24 17:58 g sertraline AdvReac anxious, Verified 04/28/24 17:58 dizzy General Stated Complaint: Cellulitis NANNETTE: 4 Course Vital Signs Vital signs: Vital Signs Temperature 36.1 C L 04/28/24 17:50 Pulse 102 H 04/28/24 17:50 Respiratory Rate 16 04/28/24 17:50 Blood Pressure 142/79 H 04/28/24 17:50 Pulse Oximetry 99 04/28/24 17:50 Temperature 36.1 C L 04/28/24 17:50 Temperature Source Temporal Artery Scan 04/28/24 17:50 Pulse 97 H 04/28/24 18:08 Respiratory Rate 16 04/28/24 18:08 Blood Pressure 131/49 L 04/28/24 18:08 Blood Pressure Position Sitting 04/28/24 17:50 Pulse Oximetry 98 04/28/24 18:08 Oxygen Delivery Method Room Air 04/28/24 18:08 Oxygen Flow Rate 0 04/28/24 17:50 Pain Level 0 04/28/24 18:08 Comment Shooting pains 2/10 down both legs as well. Feet also sore. 04/28/24 17:50 Medical Decision Making Quality:SDOH Health Related Social Needs: Health related social needs inadequate housing(Z59.1) Health related social needs details none voiced PFS All Active Problems (Updated 04/28/24 @ 19:28 by Yadi Glasgow MD) Cellulitis of left foot (Acute) Hyponatremia (Acute) Encephalopathy acute (Acute) Brain lesion (Acute) Confusion (Acute) Hypomagnesemia (Acute) Altered mental status (Acute) Headache (Acute) Brain edema (Acute) Lesion of nose (Acute) Anemia (Chronic) Chronic pain syndrome (Chronic) Addiction (Acute) Balance disorder (Acute) Insomnia (Acute) Peripheral neuropathy (Acute) Lung cancer (Chronic) Stage 4; r upper lobe Hypertension (Chronic) Brain tumor (Acute) s/p surgery; on antiseizure meds, from lung ca Vasogenic edema (Acute) Medical History Alcoholism Cellulitis Pneumothorax on right Surgical History 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 Brother Substance abuse Grandfather Heart disease Stroke Grandmother Heart disease heart failure Social History Smoking/Tobacco Use Status: Current every day Tobacco: How many years used: 50 Smokeless tobacco user: other (Vape- started 6 years ago. Quit smoking in 2018) Smoking risk assessment performed?: Yes Alcohol Intake: former Drug use: Never Substance use type: does not use Household members: spouse Housing: house Communication Needs: None Do you need help understanding health information?: Rarely Pets and animals: Yes Pets and animals: cat(s) Sexually active: No Do you think of yourself as: straight/heterosexual Current gender identity: male What is your relationship status?: How often do you talk on the phone with friends or family?: once per week How often do you get together with friends or relatives?: once per week How often do you attend mormonism or quaker services?: decline to answer Do you belong to any clubs or organized social groups?: no Panel score (0-1 are the most socially isolated patients): 1 What type of physical activity do you participate in: none Karen/Restorationist: None Special karen needs: No Seatbelt use: always Drive intox or ride w/intox pick up driver: No Do you feel safe at home: Yes Do you feel safe in your relationship?: Yes
[2024-04-28 18:41] LABS: ESR 34 mm/hr (0-20)
[2024-04-28 18:44] LABS: ALT 117 U/L (16-63); AST 23 U/L (15-37); Albumin 2.7 g/dL (3.4-5.0); Alkaline Phosphatase 86 U/L (46-116); Anion Gap 9.6 mmol/L (3-11); BUN 17 mg/dL (7-18); Bilirubin, Total 0.36 mg/dL (0.2-1.0); CO2 25.4 mmol/L (21.0-32.0); CREATININE 0.9 mg/dL (0.70-1.30); Chloride 106 mmol/L (98-107); Estimated GFR 87.96 (mL/min/1.73m2); Glucose 181 mg/dL (74-106); Magnesium 1.5 mg/dL (1.8-2.4); Potassium 3.6 mmol/L (3.5-5.1); Sodium 141 mmol/L (136-145); Total Protein 6.4 g/dL (6.4-8.2)
[2024-04-28 19:03] LABS: Absolute Neutrophil Count 18.24 10^3/uL (1.2-6.7)
[2024-04-28 19:04] LABS: Diff Comment Manual Differential; RBC Morphology Normal
[2024-04-28] MEDS: Sulfameth/Trimeth DS TAB 1 TAB PO (19:30)
[2024-04-28] MEDS: Cefpodoxime 200 MG TAB PO (19:30)
== END 2024-04-28 19:44 | disposition home or self-care (01) ==
PROVIDERS: Emergency Provider Emergency Medicine; PCP Family Medicine
DX: L03.116 Cellulitis of left lower limb (principal); G62.9 Polyneuropathy, unspecified; I10 Essential (primary) hypertension; C34.90 Malignant neoplasm of unspecified part of unspecified bronchus or lung; C79.31 Secondary malignant neoplasm of brain; F17.200 Nicotine dependence, unspecified, uncomplicated
CPT/HCPCS: 80053; 85652; 99284; 73630; 83735; 85025; 86140

== ENCOUNTER 2024-06-14 10:41 | Outpatient (CLI) | payer MEDICARE, SELFPAY ==
--- NOTE | 2024-06-14 09:45 | DI.RAD_ITS ---
Exam(s) XR HAND RT COMPLETE EXAM: XR HAND RT COMPLETE CLINICAL HISTORY: hand weakness; red, warm; hit hand,R29.898. TECHNIQUE: 2D digital imaging was performed of the right hand. Three images were obtained. AP, late ral and oblique views were obtained. COMPARISON: No exams were available for comparison FINDINGS: BONES: There is an osseous density at the anterior aspect of the base of the proximal phalanx of the ring finger. It is of indeterminate acuity. No other findings to suggest an acute fracture. No bon y destructive lesion is seen. JOINTS: No dislocation present. There are degenerative changes seen at the 1st carpometacarpal joint. The joint spaces are otherwise well maintained. SOFT TISSUE: There is no soft tissue gas or radiopaque foreign body seen in the soft tissues. IMPRESSION: 1. No radiopaque foreign body or soft tissue gas is appreciated. 2. Tiny density at the anterior aspect of the base of the proximal phalanx of the 4th finger. This i s of indeterminate acuity. The findings appear to be chronic. Please correlate with patient's site of pain. Follow-up as clinically appropriate. 3. Mild degenerative changes seen at the 1st CMC joint. DATA REPOSITORY: RADIATION DOSE DELIVERED:
== END 2024-06-14 11:01 ==
PROVIDERS: PCP Family Medicine; Visit Provider Family Medicine
DX: R29.898 Other symptoms and signs involving the musculoskeletal system (principal)
CPT/HCPCS: 73130

== ENCOUNTER 2024-06-17 00:59 | Outpatient (CLI) | payer MEDICARE, SELFPAY ==
[2024-06-17] MEDS: Gadoterate meglumine 20 ML VIAL IVP (15:16)
--- NOTE | 2024-06-17 15:30 | DI.MRI_ITS ---
Exam(s) MR BRAIN WO/W EXAM: MR BRAIN WO/W CLINICAL HISTORY: Hand weakness following brain surgery,lung ca,c34.90,g93.9. TECHNIQUE: Multiplanar multisequence MRI of the brain was performed. CONTRAST MATERIAL: IV Contrast: ML of Dotarem contrast administered. COMPARISON: MR MR BRAIN WO/W from 03/02/2024 FINDINGS: VENTRICLES AND EXTRA AXIAL SPACES: Normal in size and morphology for the patient's age. HEMORRHAGE: None. CEREBRAL PARENCHYMA: No focus of restricted diffusion to suggest acute infarct. The previously noted enhancing mass in the posterior left parietal lobe appears to have been resected since the prior exam . There is a residual fluid cavity. There has been significant decrease in the amount of white mirella er edema in the left parietal lobe. There is scattered foci of high signal in the white matter of jorden th cerebral hemispheres consistent with microvascular changes. There are no new enhancing masses. BRAINSTEM/CEREBELLUM: Normal. CALVARIUM: Left posterior parietal craniotomy defect. ENHANCEMENT: No suspicious enhancement identified. VISUALIZED PARANASAL SINUSES/MASTOIDS: Small air-fluid levels in both maxillary sinuses. Mild ethmoi d sinus mucosal thickening. Mastoid air cells are clear. Orbits: Unremarkable. Pituitary: Not enlarged. Vasculature: Normal flow voids. IMPRESSION: Interval resection of previously noted left parietal mass. Significantly decreased white matter gagan a in the left parietal lobe. No new abnormalities. DATA REPOSITORY:
== END 2024-06-17 01:19 ==
LOC: DI 00:59
PROVIDERS: PCP Family Medicine; Visit Provider Family Medicine
DX: R29.898 Other symptoms and signs involving the musculoskeletal system (principal); C34.91 Malignant neoplasm of unspecified part of right bronchus or lung
CPT/HCPCS: 70553

== ENCOUNTER → 2024-07-26 13:43 | Outpatient (BNVA) | payer MEDICARE, SELFPAY | PROVIDERS: PCP Family Medicine; Referring Provider Family Medicine; Visit Provider Psychiatry & Neurology Neurology | DX: G56.31 Lesion of radial nerve, right upper limb (principal); G56.01 Carpal tunnel syndrome, right upper limb; G56.21 Lesion of ulnar nerve, right upper limb | CPT/HCPCS: 95886; 95909; 99215; G2212 ==

== ENCOUNTER 2024-08-03 02:20 | Outpatient (CLI) | payer MEDICARE, SELFPAY ==
[2024-08-03 11:53] LABS: Abs Immature Grans 0.01 10^3/uL (0.0-0.06); Absolute Basophil Count 0.03 10^3/uL (0.0-0.2); Absolute Eosinophil Count 0.17 10^3/uL (0.0-0.7); Absolute Lymphocyte Count 1.46 10^3/uL (1.2-3.4); Absolute Monocyte Count 0.63 10^3/uL (0.1-0.8); Basophils % 0.5 %; Eosinophils % 3.1 %; HCT 42.4 % (40.0-50.0); HGB 13.6 g/dL (13.5-17.5); Immature Grans % 0.2 %; Lymphocytes % 26.5 %; MCH 25.9 pg (27.0-33.0); MCHC 32.1 % (32.0-36.0); MCV 81 fL (80-95); MPV 11.6 fL (8.0-11.0); Monocytes % 11.5 %; Neutrophils % 58.2 %; Platelet Count 164 10^3/uL (130-400); RBC 5.25 10^6/uL (4.36-5.78); RDW 12.3 % (11.8-14.1); RDW-SD 35.5 fL
[2024-08-03 12:10] LABS: Hemoglobin A1C 5.4 % (<5.7)
[2024-08-03 12:51] LABS: ALT 27 U/L (16-63); AST 43 U/L (15-37); Albumin 3.6 g/dL (3.4-5.0); Alkaline Phosphatase 84 U/L (46-116); Anion Gap 10.1 mmol/L (3-11); BUN 8 mg/dL (7-18); Bilirubin, Total 0.4 mg/dL (0.2-1.0); CO2 27.9 mmol/L (21.0-32.0); Calcium 10.1 mg/dL (8.5-10.1); Chloride 105 mmol/L (98-107); Estimated GFR 77.52 (mL/min/1.73m2); Glucose 97 mg/dL (74-106); Potassium 3.9 mmol/L (3.5-5.1); Sodium 143 mmol/L (136-145); TSH (W/Ref FT4) 0.48 uIU/mL (0.36-3.74); Total Protein 7.4 g/dL (6.4-8.2); Vitamin B12 585 pg/mL (193-986)
[2024-08-03 13:10] LABS: C-Reactive Protein < 0.50 mg/dL (<or=0.5)
[2024-08-04 13:17] LABS: Albumin 56.7 % (55.8-66.1); Albumin g/dL 3.9 g/dL (3.6-5.2); Total Protein 6.9 g/dL (6.3-8.2)
== END 2024-08-03 02:21 | disposition home or self-care (01) ==
LOC: LBO 02:21
PROVIDERS: PCP Family Medicine; Visit Provider Family Medicine
DX: C34.90 Malignant neoplasm of unspecified part of unspecified bronchus or lung; I10 Essential (primary) hypertension; L02.511 Cutaneous abscess of right hand; E11.9 Type 2 diabetes mellitus without complications
CPT/HCPCS: 36415; 80053; 85027; 82607; 83036; 84165; 84443; 85025; 86140

== ENCOUNTER 2025-02-21 02:20 | Outpatient (CLI) | payer MEDICARE, SELFPAY ==
--- NOTE | 2025-02-21 | DI.CT_ITS ---
Exam(s) CT CHEST WO EXAM: CT CHEST WO CLINICAL HISTORY: CANCER OF R UPPER LOBE OF LUNG, C34.11. TECHNIQUE: Imaging protocol: Axial computed tomography images were obtained and coronal and sagittal reformatted images were created and reviewed. Lung Computer Aided Detection (CAD) was utilized. COMPARISON: CT CT CHEST PE CTA from 04/01/[address] CHEST/ABD/PEL W from 06/02/[address] CHEST W from 03/04/2024 FINDINGS: Tracheobronchial tree: Patent where visualized. No bronchiectasis is present. Pulmonary parenchyma: Centrilobular emphysematous changes are present in the lungs. The opacity in the right upper lobe is unchanged. There are no new pulmonary nodules or infiltrates present. Mediastinum and Roberta: No dominant adenopathy or fluid collection. The esophagus is unremarkable. Thyroid gland: There is a stable 1.7 cm hypodense nodule in the isthmus. Nonemergent thyroid ultrasound may be obtained. Pleura: No effusion or pneumothorax. Heart: The heart is not dilated. Coronary artery calcification is present. No pericardial effusion. Aorta: Thoracic aorta non-dilated. Atherosclerotic calcification is present. Upper abdomen: Unremarkable. Lymph nodes: Within normal limits. Soft tissues: Bilateral gynecomastia. Bones:Within normal limits for the patient's age. IMPRESSION: 1. Stable opacity in the right upper lobe. This may represent residual tumor and/or scarring. 2. No acute pulmonary process. There are no new pulmonary nodules. RADIATION DOSE DELIVERED: 253.72mGy.cm Total DLP 253.72mGy.cm Total DLP DATA REPOSITORY: All CT scans at this facility are submitted to the National Radiology Data Registry (NRDR) Dose Index Registry (DIR) with the [employer] (ACR). RADIATION OPTIMIZATION: All CT scans at this facility use at least one of these dose optimization techniques: automated exposure control; mA and/or kV adjustment per patient size (includes targeted exams where dose is matched to clinical indication); or iterative reconstruction.
== END 2025-02-21 02:40 ==
LOC: DI 02:21
PROVIDERS: PCP Family Medicine; Visit Provider Internal Medicine Medical Oncology
DX: C34.11 Malignant neoplasm of upper lobe, right bronchus or lung (principal)
CPT/HCPCS: 71250

== ENCOUNTER 2025-02-21 03:25 | Outpatient (CLI) | payer MEDICARE, SELFPAY ==
[2025-02-21 14:57] LABS: Abs Immature Grans 0.02 10^3/uL (0.0-0.06); HCT 40.7 % (40.0-50.0); HGB 13.0 g/dL (13.5-17.5); Immature Grans % 0.3 %; MCH 25.7 pg (27.0-33.0); MCHC 31.9 % (32.0-36.0); MCV 80 fL (80-95); MPV 10.6 fL (8.0-11.0); Platelet Count 153 10^3/uL (130-400); RBC 5.06 10^6/uL (4.36-5.78); RDW 13.9 % (11.8-14.1); RDW-SD 40.3 fL; WBC 6.39 10^3/uL (4.4-10.8)
[2025-02-21 15:46] LABS: ALT 14 U/L (16-63); AST 14 U/L (15-37); Albumin 3.8 g/dL (3.4-5.0); Alkaline Phosphatase 96 U/L (46-116); Anion Gap 8.4 mmol/L (3-11); BUN 13 mg/dL (7-18); Bilirubin, Total 0.4 mg/dL (0.2-1.0); CO2 30.6 mmol/L (21.0-32.0); Calcium 9.6 mg/dL (8.5-10.1); Chloride 105 mmol/L (98-107); Estimated GFR 77.04 (mL/min/1.73m2); Glucose 103 mg/dL (74-106); Potassium 3.7 mmol/L (3.5-5.1); Sodium 144 mmol/L (136-145); Total Protein 7.6 g/dL (6.4-8.2); Uric Acid 4.7 mg/dL (3.5-7.2)
[2025-02-21 16:19] LABS: Magnesium 1.9 mg/dL (1.8-2.4)
[2025-02-22 19:15] LABS: Hepatitis C Ab w Rflx HCV PCR Negative (Negative)
== END 2025-02-21 03:26 | disposition home or self-care (01) ==
LOC: LBO 03:25
PROVIDERS: Nurse Practitioner; PCP Family Medicine; Visit Provider Family Medicine
DX: M10.9 Gout, unspecified (principal); I10 Essential (primary) hypertension; Z11.59 Encounter for screening for other viral diseases; C34.11 Malignant neoplasm of upper lobe, right bronchus or lung
CPT/HCPCS: 36415; 80053; 86803; 83735; 84550; 85025